=== PATIENT | male | born 1950 | race Caucasian/White ===

== ENCOUNTER 2017-05-16 13:14 | Emergency (ER) | payer OTHER ==
[2017-05-16] MEDS ORDERED: LET GEL TOPICAL 1 EA SYR TP ONE ×2 (13:29→13:30)
--- NOTE | 2017-05-16 13:34 | EDPHY ---
H & P Time Seen by Provider: 05/16/17 13:27 HPI/ROS: Chief Complaint: Skin tear left arm HPI: 66-year-old male sustained a contusion to his left for was struck by a door 3 days ago. Following day he was playing with his dog when he gets crashed over the contusion resulting in a skin tear. He is presenting today for evaluation. Denies any redness. No fevers or chills. No discharge. He is not on any immune suppressive medications other than some prednisone at this point. No prior injuries ROS: 10 point Review of Systems is negative except as noted in the HPI. Social History: [No] smoking, [no] alcohol, [ no recreational drug use] Family History: [non-contributory] Physical Exam: General: Awake, alert, no acute distress Left arm. He has a 3 cm contusion on his left forearm with an overlying skin tear. There is some dried epidermis along 1 edge. There is no erythema and there is no discharge. It is minimally tender to the touch. He is neurologically intact distally. Normal capillary refill. Skin: No rash - Personal History Tetanus Vaccine Date: 2009 - Medical/Surgical History Hx Asthma: No Hx Chronic Respiratory Disease: Yes Hx Diabetes: No Hx Cardiac Disease: No Hx Renal Disease: No Hx Cirrhosis: No Hx Alcoholism: No Hx HIV/AIDS: No Hx Splenectomy or Spleen Trauma: No Other PMH: HTN, HL, Meniere's Dse, emphysema, glaucoma, diverticulitis, anxiety , reflux, kidney stone - Social History Smoking Status: Former smoker Constitutional: Initial Vital Signs Heart Rate 90 05/16/17 13:20 Respiratory Rate 16 05/16/17 13:20 Blood Pressure 132/71 H 05/16/17 13:20 O2 Sat (%) 93 05/16/17 13:20 O2 Delivery Mode Room Air Allergies/Adverse Reactions: No Known Allergies Allergy (Verified 05/16/17 13:33) Home Medications: Medication Instructions Recorded Atorvastatin Calcium [Lipitor 20 20 mg PO HS 09/27/15 mg (*)] Bisoprolol Fumarate [Zebeta (*)] 2.5 mg PO DAILY 09/27/15 Montelukast Sodium [Singulair 10 10 mg PO DAILY 09/27/15 mg (*)] Omeprazole [Prilosec 20 mg] 20 mg PO BID 09/27/15 Spironolactone [Aldactone 25 MG 25 mg PO DAILY 09/27/15 (*)] Timolol [Betimol] 2 drops EACHEYE DAILY 09/27/15 Eye Drops Glaucoma 05/16/17 Medical Decision Making - Data Points Medications Given: Discontinued Medications Tetracaine/Epinephrine/Lidocaine (Let Gel Topical) 1 ea TP EDNOW ONE Stop: 05/16/17 13:31 Last Admin: 05/16/17 13:59 Dose: 1 ea Departure - Departure Disposition: Home, Routine, Self-Care Clinical Impression: Skin tear Condition: Good Instructions: Skin Tear (ED) Additional Instructions: Return to the emergency depart for increasing redness, increasing pain, fevers, chills, discharge from the wound, or any other concerns. Referrals: Lei Albert MD [Primary Care Provider] - As per Instructions
[2017-05-16 13:39] VITALS: BP 132/71; PULSE 90; RESP 16; O2SAT 93
[2017-05-16 14:11] VITALS: TEMP 98.2
== END 2017-05-16 14:00 | disposition home or self-care (01) ==
LOC: CED 13:14
DX: S51.812A Laceration without foreign body of left forearm, initial encounter (principal); I10 Essential (primary) hypertension; Z87.891 Personal history of nicotine dependence; W22.8XXA Striking against or struck by other objects, initial encounter

== ENCOUNTER → 2017-05-16 | Outpatient (CLI) | payer OTHER | LOC: CIMAGING 13:11 | PROVIDERS: ATTEND Internal Medicine Critical Care Medicine | DX: J44.9 Chronic obstructive pulmonary disease, unspecified (principal) | CPT/HCPCS: 71020-PO ==

== ENCOUNTER → 2017-06-01 | Outpatient (CLI) | payer OTHER | LOC: CIMAGING 11:31 | PROVIDERS: ATTEND Internal Medicine | DX: J44.9 Chronic obstructive pulmonary disease, unspecified (principal); J18.9 Pneumonia, unspecified organism; I10 Essential (primary) hypertension | CPT/HCPCS: 71020-PO ==

== ENCOUNTER → 2017-06-20 | Outpatient (CLI) | payer OTHER | LOC: CIMAGING 10:47 | PROVIDERS: ATTEND Internal Medicine | DX: J44.9 Chronic obstructive pulmonary disease, unspecified (principal) | CPT/HCPCS: 71020-PO ==

== ENCOUNTER → 2017-07-04 | Outpatient (CLI) | payer OTHER ==
[~2017-07-04] MED LIST: IOPAMIDOL (ISOVUE-300) 100 ML BTL ONE
== END ==
LOC: CIMAGING 13:16
PROVIDERS: ATTEND Internal Medicine
DX: J84.9 Interstitial pulmonary disease, unspecified (principal); K76.89 Other specified diseases of liver
CPT/HCPCS: 71260; Q9967

== ENCOUNTER → 2017-08-15 | Outpatient (CLI) | payer OTHER | LOC: CIMAGING 10:05 | PROVIDERS: ATTEND Internal Medicine Critical Care Medicine | DX: J18.9 Pneumonia, unspecified organism (principal) | CPT/HCPCS: 71020-PO ==

== ENCOUNTER 2017-10-30 01:07 | Emergency (ER) | payer OTHER ==
[2017-10-30 01:17] VITALS: TEMP 97.9
[2017-10-30] MEDS ORDERED: HYDROmorphONE/DILAUDID 1 MG/ML INJ ONE (01:25)
[2017-10-30] MEDS ORDERED: HYDROmorphONE/DILAUDID 1 MG/ML INJ IVP ONE (01:29)
[2017-10-30] MEDS ORDERED: NS 1,000 ML IV ONE ×2 (01:33)
[2017-10-30] MEDS ORDERED: KETOROLAC 30 MG/1 ML SDV IVP ONE (01:33)
[2017-10-30 01:42] LABS: PLATELET COUNT 297 10^3/uL (150-400)
[2017-10-30] MEDS ORDERED: NS IV ONE (02:00)
[2017-10-30] MEDS ORDERED: LIDOCAINE IV ONE (02:00)
--- NOTE | 2017-10-30 02:03 | EDPHY ---
H & P Stated Complaint: rt sided pain x 1.5 hrs, feels like prior kidney stones Time Seen by Provider: 10/30/17 01:52 HPI/ROS: HPI The patient presents with right-sided flank and lower abdominal pain which awoke him from sleep at about midnight tonight. The pain started suddenly, is described as a dull ache and is severe. It feels like his prior kidney stone which she had about 2 years ago which required admission to the hospital, which he has passed spontaneously. He has been able to urinate, denies any hematuria. Denies any nausea or vomiting.. REVIEW OF SYSTEMS Constitutional: No fever, no chills. Eyes: No discharge. ENT: No sore throat. Cardiovascular: No chest pain, no palpitations. Respiratory: No cough, no shortness of breath. Gastrointestinal: No abdominal pain, no vomiting. Genitourinary: No hematuria. Musculoskeletal: No back pain. Skin: No rashes. Neurological: No headache. PMHx: Prior history of kidney stone, interstitial lung disease, hypertension Soc Hx: Housed with PHYSICAL General Appearance: Alert, no distress Eyes: Pupils equal and round no pallor or injection ENT, Mouth: Mucous membranes moist Respiratory: There are no retractions, lungs are clear to auscultation Cardiovascular: Regular rate and rhythm Back: No flank tenderness Gastrointestinal: Abdomen is soft with mild tenderness in the right lower quadrant, no masses, bowel sounds normal Neurological: A&O, moves all extremities Skin: Warm and dry, no rashes Musculoskeletal: Neck is supple non tender Extremities: symmetrical, full range of motion Psychiatric: Patient is oriented X 3, there is no agitation Source: Patient Exam Limitations: No limitations - Personal History Current Tetanus/Diphtheria Vaccine: Yes Current Tetanus Diphtheria and Acellular Pertussis (TDAP): Yes Tetanus Vaccine Date: 2009 - Medical/Surgical History Hx Asthma: No Hx Chronic Respiratory Disease: Yes Hx Diabetes: No Hx Cardiac Disease: No Hx Renal Disease: No Hx Cirrhosis: No Hx Alcoholism: No Hx HIV/AIDS: No Hx Splenectomy or Spleen Trauma: No Other PMH: HTN, HL, Meniere's Dse, emphysema, glaucoma, diverticulitis, anxiety , reflux, kidney stone, interstitial lung disease - Social History Smoking Status: Former smoker Constitutional: Initial Vital Signs Temperature (C) 36.6 C 10/30/17 01:14 Heart Rate 100 10/30/17 01:14 Respiratory Rate 16 10/30/17 01:14 Blood Pressure 149/94 H 10/30/17 01:14 O2 Sat (%) 98 10/30/17 01:14 O2 Delivery Mode Room Air Allergies/Adverse Reactions: No Known Allergies Allergy (Verified 10/30/17 01:12) Home Medications: Medication Instructions Recorded Atorvastatin Calcium [Lipitor 20 20 mg PO HS 09/27/15 mg (*)] Bisoprolol Fumarate [Zebeta (*)] 2.5 mg PO DAILY 09/27/15 Montelukast Sodium [Singulair 10 10 mg PO DAILY 09/27/15 mg (*)] Omeprazole [Prilosec 20 mg] 20 mg PO BID 09/27/15 Spironolactone [Aldactone 25 MG 25 mg PO DAILY 09/27/15 (*)] Timolol [Betimol] 2 drops EACHEYE DAILY 09/27/15 Eye Drops Glaucoma 05/16/17 Ondansetron Odt [Zofran Odt 4 mg 4 mg PO Q4 PRN #10 tab 10/30/17 (*)] Tamsulosin HCl [Flomax 0.4 MG (*)] 0.4 mg PO DAILY #10 cap 10/30/17 morphINE IR [morphINE IR 15 mg (*)] 15 mg PO Q4H PRN #10 tab 10/30/17 Medical Decision Making Procedures: Bedside renal Ultrasound- performed and interpreted by me. Indication: Flank pain and hematuria Findings: Mild right-sided hydronephrosis, no left-sided hydronephrosis, no fluid in Morison's pouch Impression: Mild right-sided hydronephrosis Differential Diagnosis: 67-year-old male with history of nephrolithiasis, calcium stone by his report, requiring admission about 2 years ago, presents with acute onset right-sided flank and right lower quadrant abdominal pain which feels similar to his prior episode of renal colic. Differential diagnosis includes renal colic, pyelonephritis, less likely appendicitis. In the emergency department, patient received IV fluids, pain medications. He felt much better with these treatments. He improved after receiving a lidocaine drip. Ultrasound was performed at the bedside and he does have mild right-sided hydronephrosis. Labs demonstrated hematuria. Given his history of kidney stones, I feel with the above findings his presentation is most consistent with renal colic and I have discussed this with him. He feels well enough to go home. I will discharge him with medications and follow up with his urologist. He is in agreement with this plan. - Data Points Laboratory Results: Laboratory Results 10/30/17 01:24 10/30/17 01:24 Medications Given: Discontinued Medications Hydromorphone HCl (Dilaudid) 1 mg IVP EDNOW ONE Stop: 10/30/17 01:30 Last Admin: 10/30/17 01:31 Dose: 1 mg Sodium Chloride (Ns) 1,000 mls @ 0 mls/hr IV ONCE ONE; Wide Open PRN Reason: Protocol Stop: 10/30/17 01:34 Last Admin: 10/30/17 01:47 Dose: 1,000 mls Sodium Chloride (Ns) 1,000 mls @ 0 mls/hr IV ONCE ONE; Wide Open PRN Reason: Protocol Stop: 10/30/17 01:34 Last Admin: 10/30/17 01:46 Dose: 1,000 mls Lidocaine HCl 130 mg/ Sodium (Chloride) 113 mls @ 600 mls/hr IV EDNOW ONE Stop: 10/30/17 02:11 Last Admin: 10/30/17 02:42 Dose: 113 mls Ketorolac Tromethamine (Toradol) 30 mg IVP EDNOW ONE Stop: 10/30/17 01:34 Last Admin: 10/30/17 01:45 Dose: 30 mg Ondansetron HCl (Zofran) 4 mg IVP EDNOW ONE Stop: 10/30/17 02:53 Last Admin: 10/30/17 02:55 Dose: 4 mg Tamsulosin HCl (Flomax) 0.4 mg PO EDNOW ONE Stop: 10/30/17 02:23 Last Admin: 10/30/17 02:26 Dose: 0.4 mg Departure - Departure Disposition: Home, Routine, Self-Care Clinical Impression: Kidney stone on right side Condition: Good Instructions: Kidney Stones (ED) Additional Instructions: 1. Take Ibuprofen 400 mg with acetaminophen 650 mg every 6 hr. 2. Morphine as needed for severe pain 3. Flomax as directed 4. Zofran as needed for nausea 5. Strain urine as directed 6. Return to the Emergency Department for intractable pain, fever or vomiting. 7. Followup with the urologist you have been referred to for unimproved symptoms. Referrals: Ramone Campos MD [Primary Care Provider] - As per Instructions Franklin Kenney MD [Medical Doctor] - As per Instructions Prescriptions: morphINE IR [morphINE IR 15 mg (*)] 15 mg PO Q4H PRN #10 tab PRN Reason: Pain, Breakthrough Ondansetron Odt [Zofran Odt 4 mg (*)] 4 mg PO Q4 PRN #10 tab PRN Reason: Nausea/Vomiting, Can'T Take Po Tamsulosin HCl [Flomax 0.4 MG (*)] 0.4 mg PO DAILY #10 cap
[2017-10-30] MEDS ORDERED: TAMSULOSIN HCL 0.4 MG CAP PO ONE (02:22)
[2017-10-30 02:45] VITALS: RESP 14
[2017-10-30] MEDS ORDERED: ONDANSETRON 4 MG/2 ML VIAL ONE (02:51)
[2017-10-30] MEDS ORDERED: ONDANSETRON 4 MG/2 ML VIAL IVP ONE (02:52)
[2017-10-30 03:45] VITALS: BP 144/81; PULSE 80; O2SAT 94
== END 2017-10-30 03:45 | disposition home or self-care (01) ==
DX: N20.0 Calculus of kidney (principal); I10 Essential (primary) hypertension; E86.9 Volume depletion, unspecified; Z87.891 Personal history of nicotine dependence
CPT/HCPCS: 96361; 96374; 96375; 99284; J1170; J1885; J2405

== ENCOUNTER 2017-11-02 16:49 | Emergency (ER) | payer OTHER ==
[2017-11-02 16:58] VITALS: RESP 18; TEMP 97.7
[2017-11-02 18:11] LABS: PLATELET COUNT 229 10^3/uL (150-400)
--- NOTE | 2017-11-02 18:18 | EDPHY ---
H & P Time Seen by Provider: 11/02/17 17:32 HPI/ROS: CHIEF COMPLAINT: fever HISTORY OF PRESENT ILLNESS: This patient is a 67 y/o male with interstitial lung disease arriving at the request of his urologist for evaluation of fever and hypoxia. He was evaluated in this emergency department Sunday night for flank pain and had an ultrasound which revealed right hydronephrosis. He was diagnosed with a presumptive kidney stone. He has had intermittent right abdominal and flank pain since Sunday. Symptoms feel the same as prior kidney stone two years ago. His pain has been less manageable over the last two days, and he has increased his dosage of pain medication. On Sunday, he became febrile with a measured fever of 99-101. The patient has history of interstitial lung disease and noted his oxygen levels drop this week as well: on Sunday he noticed it was in the low to mid 80s rather than his usual 90-94. He has felt mildly short of breath. No new cough, congestion or sore throat. He followed up with Dr. Kenney, urologist , today who recommended he present for evaluation of his fever and hypoxia. He denies chest pain, headache, weakness, dizziness, vomiting, diarrhea, or other associated symptoms. REVIEW OF SYSTEMS: A 10 point review of systems was performed and is negative with the exception of the elements mentioned in the history of present illness. Past Medical/Surgical History: Hypertension Mnire's Disease Emphysema Glaucoma Diverticulitis GERD Kidney stones Interstitial lung disease Social History: Lives in [place]. Retired. . Former smoker. Smoking Status: Former smoker Physical Exam: General Appearance: Alert, pleasant, non-toxic appearing Eyes: Pupils equal and round, no conjunctival pallor or injection ENT, Mouth: Mucous membranes moist Neck: Normal inspection Respiratory: Normal respiratory rate, Scattered bilateral rales Cardiovascular: Regular rate and rhythm Gastrointestinal: Abdomen is soft and non-tender Back: No CVA tenderness Neurological: A&O, nonfocal exam Skin: Warm and dry, no rash Extremities: Nontender, no pedal edema Psychiatric: Mood and affect normal Constitutional: Initial Vital Signs Temperature (C) 36.5 C 11/02/17 16:55 Heart Rate 118 H 11/02/17 16:55 Respiratory Rate 18 11/02/17 16:55 Blood Pressure 133/80 H 11/02/17 16:55 O2 Sat (%) 89 L 11/02/17 16:55 O2 Delivery Mode Room Air O2 (L/minute) 2 Allergies/Adverse Reactions: No Known Allergies Allergy (Verified 10/30/17 01:12) Home Medications: Medication Instructions Recorded Atorvastatin Calcium 11/02/17 Flomax 11/02/17 Montelukast Sodium 11/02/17 levOFLOXACIN [levAQUIN (*)] 750 mg PO DAILY #7 tab 11/02/17 Medical Decision Making - Diagnostics Imaging Results: CT scan of the abdomen pelvis read by the radiologist reveals a 4 mm right UVJ stone with mild hydronephrosis CT scan of the chest read by the radiologist reveals a right upper lobe and left lower lobe infiltrate, consistent with multifocal pneumonia Imaging: Discussed imaging studies w/ call center specialist Radiologist ED Course/Re-evaluation: 67 y/o male with right flank pain, hypoxia and fever onset four days ago. Plan for CT chest as requested by Dr. Kenney. Plan for labs including flu swab, lactic acid, UA, CBC, chemistries. His flank pain is well controlled with 6mg IV morphine. Administered 4mg IV Zofran, 1L IV NS. Spoke with Dr. moseley prior to this patient's arrival and the plan is for him to have a CT scan his chest, abdomen and pelvis to rule out pneumonia as well as a kidney stone. 18:[address] Cason, radiologist. CT abdomen/pelvis shows obstructive uropathy secondary to 4 mm stone at the right UVJ. Discussed with patient, he is currently pain free. 18:[address] Kenney. 19:[address] Cason, radiologist. CT chest shows evidence of pneumonia. 19:50 Reassessed patient. I advised admission, but he declines. He has oxygen at home and is comfortable using his home oxygen around the clock. He is nontoxic-appearing and vital signs are normal, except for hypoxia. Plan to d/c home with his . I will place him on Levaquin. Levaquin 750 mg orally given prior to discharge. He will follow up with pulmonology and urology on Sunday for continued evaluation. Strict return precautions discussed. He is comfortable with this plan. Differential Diagnosis: Differential diagnosis includes pyelonephritis, cholecystitis, influenza, cellulitis, pneumonia, abscess, meningitis. - Data Points Laboratory Results: Laboratory Results 11/02/17 18:00 11/02/17 18:00 Microbiology Results: MICROBIOLOGY 11/02/17 18:00 Blood Blood Culture - Preliminary Gram Positive Cocci Clusters 11/02/17 18:00 Blood Blood Culture - Preliminary Gram Positive Cocci Clusters 11/02/17 17:50 Nasal, Sinus - Swab Respiratory Panel (PCR) - Final No Organism Detected Medications Given: Discontinued Medications Levofloxacin (Levaquin) 750 mg PO EDNOW ONE PRN Reason: Protocol Stop: 11/02/17 19:57 Last Admin: 11/02/17 20:08 Dose: 750 mg Morphine Sulfate (Morphine) 6 mg IVP EDNOW ONE Stop: 11/02/17 18:25 Last Admin: 11/02/17 18:33 Dose: 6 mg Ondansetron HCl (Zofran) 4 mg IVP EDNOW ONE Stop: 11/02/17 18:25 Last Admin: 11/02/17 18:32 Dose: 4 mg Departure - Departure Disposition: Home, Routine, Self-Care Clinical Impression: Ureterolithiasis Pneumonia Qualifiers: Pneumonia type: due to unspecified organism Laterality: bilateral Lung location : unspecified part of lung Qualified Code(s): J18.9 - Pneumonia, unspecified organism Condition: Good Instructions: Kidney Stones (ED), Pneumonia (ED) Additional Instructions: 1. Take Levaquin as prescribed. Follow up with Dr. Campos, coal wheeler, on Sunday. 2. Follow up with Dr. Kenney on Sunday. You may strain your urine to try and catch the kidney stone and bring this to the urology appointment. 3. Return to the emergency department for fever, severe pain, inability to urinate or other concerns. Return to the emergency department for worsening oxygen saturation, chest pain, shortness of breath, or other worsening of condition. Referrals: Ramone Campos MD [Primary Care Provider] - As per Instructions Franklin Kenney MD [Medical Doctor] - As per Instructions Prescriptions: levOFLOXACIN [levAQUIN (*)] 750 mg PO DAILY #7 tab Report Scribed for: Sabrina Thomas Report Scribed by: Jolie Henderson Date of Report: 11/02/17 Time of Report: 18:40 Physician Review and Approval Statement: 11/02/17 18:40 Portions of this note were transcribed by a director of graduate medical education. I personally performed a history, physical exam, medical decision making, and confirmed accuracy of information the transcribed note.
[2017-11-02] MEDS ORDERED: ONDANSETRON 4 MG/2 ML VIAL IVP ONE (18:24)
[2017-11-02 19:05] VITALS: BP 128/78
[2017-11-02 20:09] VITALS: PULSE 108; O2SAT 96
== END 2017-11-02 20:09 | disposition home or self-care (01) ==
DX: N20.1 Calculus of ureter (principal); J18.9 Pneumonia, unspecified organism; I10 Essential (primary) hypertension; Z87.891 Personal history of nicotine dependence
CPT/HCPCS: 71250; 74176; 96374; 96375; 99285; J2270

== ENCOUNTER → 2017-11-02 | Outpatient (CLI) | payer OTHER | LOC: FIMAGING 14:41 | PROVIDERS: ATTEND Specialist | DX: N20.0 Calculus of kidney (principal) ==

== ENCOUNTER 2017-11-03 17:07 | Inpatient (IN) | payer OTHER ==
--- NOTE | 2017-11-03 17:54 | EDPHY ---
H & P Time Seen by Provider: 11/03/17 17:11 HPI/ROS: CHIEF COMPLAINT: Positive blood cultures HISTORY OF PRESENT ILLNESS: The patient is a 67 y/o male with a history of interstitial lung disease and hypertension presenting to the ED after his blood cultures from yesterday resulted positive. He was sent to the ED yesterday after his urologist noticed that the patient was hypoxic and had a fever. During the ED visit they preformed labs and an abdominal and chest CT. He was diagnosed with a right ureteral calculus and bilateral pneumonia. He declined admission and was prescribed Levaquin. After returning home last night he had several episodes of severe right abdomen/flank pain; however it was alleviated with pain medication. Today he was using supplemental O2 at home and his O2sats were around 94%. He has had lack of appetite, mild nausea, and heart burn today. He also has not had a bowel movement for several days. Today blood cultures were positive and he was called by the ED to return to the hospital. He is currently having mild discomfort and an infrequent cough. No chest pain, headache, sore throat, numbness, paresthesias. REVIEW OF SYSTEMS: Aside from elements discussed in the HPI, a comprehensive 10-point review of systems was reviewed and is negative. Past Medical/Surgical History: Hypertension, hyperlipidemia, Mnire's Disease, emphysema, glaucoma, diverticulitis, GERD, kidney stones, interstitial lung disease, pneumonia Social History: at bedside, lives in [place], retired Smoking Status: Former smoker Physical Exam: General Appearance: Alert, pleasant, nontoxic Eyes: Pupils equal and round, no conjunctival pallor or injection ENT, Mouth: Mucous membranes moist Neck: Normal inspection Respiratory: Normal respiratory rate, rales at the left base Cardiovascular: Regular tachycardia Gastrointestinal: Abdomen is soft and non-tender Neurological: A&O, nonfocal Skin: Warm and dry, no rash Extremities: Nontender, no pedal edema Psychiatric: Mood and affect normal Constitutional: Initial Vital Signs Temperature (C) 37.3 C 11/03/17 17:10 Heart Rate 115 H 11/03/17 17:10 Respiratory Rate 20 11/03/17 17:10 Blood Pressure 128/76 H 11/03/17 17:10 O2 Sat (%) 89 L 11/03/17 17:10 O2 Delivery Mode Room Air Allergies/Adverse Reactions: No Known Allergies Allergy (Verified 11/03/17 17:09) Home Medications: Medication Instructions Recorded Atorvastatin Calcium [Lipitor 20 20 mg PO DAILY 11/02/17 mg (*)] Montelukast Sodium [Singulair 10 10 mg PO DAILY@1800 11/02/17 mg (*)] Tamsulosin HCl [Flomax 0.4 MG (*)] 0.4 mg PO DAILY 11/02/17 levOFLOXACIN [levAQUIN (*)] 750 mg PO DAILY #7 tab 11/02/17 Bisoprolol Fumarate [Zebeta (*)] 2.5 mg PO DAILY 11/03/17 Budesonide/Formoterol 160/4.5 2 puffs IH BID 11/03/17 [Symbicort 160-4.5 Mcg Inh (*)] Fluticasone Nasal [Flonase Nasal 2 sprays NASAL DAILY 11/03/17 [place] (RX)] Omeprazole [Prilosec 20 mg] 20 mg PO DAILY@18 11/03/17 Sodium Cl Nasal [Mcpherson [place] (*)] 1 spray NS DAILY 11/03/17 Spironolactone [Aldactone 25 MG 25 mg PO DAILY 11/03/17 (*)] Timolol Maleate 1 drop EACHEYE DAILY 11/03/17 Medical Decision Making ED Course/Re-evaluation: The patient is a 67 y/o male with a history of interstitial lung disease presenting to the ED after his blood cultures from yesterday came back positive for gram positive cocci in clusters. He was diagnosed with a right kidney stone in the renal calculus and a bilateral pneumonia, but declined admission. On exam today, he has a few rales in the left base and is mildly tachycardic. He is comfortable with plan for admission today. Labs ordered. 1802: Consulted with Dr. Ruiz, infectious disease, regarding this patient. Query infection versus contamination. Suggests that positive blood cultures be treated as bacteremia; 1gm IV Vancomycin administered. Pt does not meet SIRS criteria. Dr. Ruiz will see this patient tomorrow. 1806: Consulted with hospitalist service, Dr. Allen accepts admission of this patient to med/surg. 1811: Reassessed patient and discussed plan with pt for hospitalization, IV abx and for ID consultation. Differential Diagnosis: Differential diagnosis includes pyelonephritis, cholecystitis, influenza, cellulitis, pneumonia, abscess, meningitis. - Data Points Laboratory Results: Laboratory Results 11/03/17 17:45 11/03/17 17:45 Microbiology Results: MICROBIOLOGY 11/03/17 18:00 Blood Blood Culture - Preliminary 11/03/17 17:45 Blood Blood Culture - Preliminary Medications Given: Albuterol/Ipratropium (Duoneb) 3 ml IH TID [facility] Stop: 05/03/18 21:59 Last Admin: 11/05/17 08:32 Dose: 3 ml Atorvastatin Calcium (Lipitor) 20 mg PO DAILY RAMSES Stop: 05/03/18 08:59 Last Admin: 11/05/17 09:14 Dose: 20 mg Bisoprolol Fumarate (Zebeta) 2.5 mg PO DAILY [facility] Stop: 05/03/18 08:59 Last Admin: 11/05/17 09:15 Dose: 2.5 mg Budesonide/Formoterol Fumarate (Symbicort 160-4.5 Mcg Inhaler) 2 puffs IH BID [facility] Stop: 05/02/18 20:59 Last Admin: 11/05/17 08:32 Dose: 2 puffs Fluticasone Propionate (Flonase Nasal [place]) 2 sprays EACHNARE DAILY [facility] Stop: 05/03/18 08:59 Last Admin: 11/05/17 09:21 Dose: 2 sprays Vancomycin/Sodium Chloride (Vancomycin 1 Gm (Premix)) 250 mls @ 250 mls/hr IV Q12H [facility] PRN Reason: Protocol Stop: 12/04/17 05:59 Last Admin: 11/05/17 06:01 Dose: 250 mls Lactated Ringer's (Lr) 1,000 mls @ 200 mls/hr IV CONT [facility] Stop: 05/02/18 18:59 Last Admin: 11/05/17 06:01 Dose: 1,000 mls Levofloxacin (Levaquin) 750 mg PO DAILY AT 10AM [facility] PRN Reason: Protocol Stop: 12/04/17 18:29 Last Admin: 11/05/17 09:14 Dose: 750 mg Montelukast Sodium (Singulair) 10 mg PO DAILY@1800 [facility] Stop: 05/03/18 17:59 Last Admin: 11/04/17 18:00 Dose: 10 mg Morphine Sulfate (Morphine) 0.5 - 4 mg IVP Q2 PRN PRN Reason: Pain, Severe Unable to Take PO Stop: 11/13/17 18:19 Last Admin: 11/04/17 17:08 Dose: 2 mg Ondansetron HCl (Zofran) 4 mg IVP Q4HRS PRN PRN Reason: Nausea/Vomiting, Can't Take PO Stop: 05/02/18 18:19 Last Admin: 11/04/17 14:19 Dose: 4 mg Oxycodone HCl (Oxycodone Ir) 5 - 15 mg PO Q3HRS PRN PRN Reason: Pain, Severe Able to Take PO Stop: 11/13/17 18:19 Last Admin: 11/05/17 09:33 Dose: 10 mg Pantoprazole Sodium (Protonix) 40 mg PO DAILY@1800 [facility] Stop: 05/03/18 17:59 Last Admin: 11/04/17 17:59 Dose: 40 mg Senna/Docusate Sodium (Senokot-S) 1 - 2 tab PO BID RAMSES PRN Reason: Protocol Stop: 05/02/18 20:59 Last Admin: 11/05/17 09:19 Dose: 2 tab Sodium Chloride (Mcpherson) 1 spray NS DAILY RAMSES Stop: 05/03/18 08:59 Last Admin: 11/05/17 09:18 Dose: 1 spray Tamsulosin HCl (Flomax) 0.4 mg PO DAILY RAMSES Stop: 05/03/18 08:59 Last Admin: 11/05/17 09:18 Dose: 0.4 mg Timolol Maleate (Timoptic 0.25%) 1 drops EACHEYE DAILY RAMSES Stop: 05/03/18 08:59 Last Admin: 11/05/17 09:22 Dose: 1 drop Discontinued Medications Fentanyl (Sublimaze) 25 - 100 mcg IVP Q5M PRN PRN Reason: PACU, IMMEDIATE Pain control Stop: 11/04/17 14:17 Last Admin: 11/04/17 13:31 Dose: 50 mcg Vancomycin/Sodium Chloride (Vancomycin 1 Gm (Premix)) 250 mls @ 250 mls/hr IV EDNOW ONE PRN Reason: Protocol Stop: 11/03/17 19:09 Last Admin: 11/03/17 18:30 Dose: 250 mls Sodium Chloride (Ns) 1,000 mls @ 0 mls/hr IV ONCE ONE; Wide Open PRN Reason: Protocol Stop: 11/03/17 18:22 Last Admin: 02/10/18 18:22 Dose: 1,000 mls Iopamidol (Isovue-300) Confirm Administered Dose 150 ml .ROUTE .STK-MED ONE Stop: 11/04/17 10:25 Last Admin: 11/04/17 12:55 Dose: 150 ml Lidocaine (Uroject Lidocaine 2% Jelly) Confirm Administered Dose 20 ml .ROUTE .STK-MED ONE Stop: 11/04/17 10:25 Last Admin: 11/04/17 12:56 Dose: 20 ml Midazolam HCl (Versed) 2 mg IVP ONCALL ONE Stop: 11/04/17 12:06 Last Admin: 11/04/17 12:27 Dose: 2 mg Departure - Departure Disposition: [facility] Inpatient Acute Clinical Impression: Kidney stone on right side, Bacteremia Pneumonia Qualifiers: Pneumonia type: due to unspecified organism Laterality: bilateral Lung location : unspecified part of lung Qualified Code(s): J18.9 - Pneumonia, unspecified organism Condition: Fair Report Scribed for: Sabrina Thomas Report Scribed by: Iona Key Date of Report: 11/03/17 Time of Report: 17:54 Physician Review and Approval Statement: 11/03/17 17:54 Portions of this note were transcribed by a director of medical staff services. I personally performed a history, physical exam, medical decision making, and confirmed accuracy of information the transcribed note.
[2017-11-03 18:00] LABS: PLATELET COUNT 214 10^3/uL (150-400)
[2017-11-03] MEDS ORDERED: VANCOMYCIN HCL/NORMAL SALINE 250 ML IV ONE (18:10)
[2017-11-03] MEDS ORDERED: ACETAMINOPHEN 325 MG TAB PO PRN (18:20)
[2017-11-03] MEDS ORDERED: ONDANSETRON DISINTEGRATING 4 MG TAB PO PRN (18:20)
[2017-11-03] MEDS ORDERED: oxyCODONE IR 5 MG TAB PO PRN (18:20)
[2017-11-03] MEDS ORDERED: ONDANSETRON 4 MG/2 ML VIAL IVP PRN (18:20)
[2017-11-03] MEDS ORDERED: NS 1,000 ML IV ONE (18:21)
[2017-11-03] MEDS ORDERED: POLYETHYLENE GLYCOL 3350 17 GM PKT PO PRN (18:24)
[2017-11-03] MEDS ORDERED: LACTULOSE 20 GM/30 ML UDCUP PO PRN (18:24)
[2017-11-03] MEDS ORDERED: MAGNESIUM HYDROXIDE 30 ML UDCUP PO PRN (18:24)
[2017-11-03] MEDS ORDERED: BISACODYL 10 MG SUPP PR PRN (18:24)
--- NOTE | 2017-11-03 19:39 | PDGENHP ---
History and Physical - Chief Complaint Acute fever - History of Present Illness Primary care provider: Dr. Bethany Ho Primary life skills consultant: Dr. Ramone Campos, [facility] Primary urologist: Dr. Jermaine Kenney HPI: 67-year-old male presenting with acute fever characterized as a temperature of 101.3 degrees F, with associated pain located in the right flank , shortness of breath, constipation. The patient onset of symptoms regarding the right flank pain was approximately 1 week ago, the patient was referred to Dr. Kenney, he was seen in clinic on the day prior to this presentation, advised to increase his oral intake of water, utilize as [place] for pain control. The patient's pain has been somewhat alleviated by using the [place], but has resulted in constipation. Concomitantly, the patient has also noted some shortness of breath exacerbated by ambulation, and his SpO2 has been in the high 70 to low 80% range at home. The patient only utilizes oxygen nocturnally, but he has been using the oxygen continuously now and this has somewhat alleviated his shortness of breath. He otherwise reports chronic nonproductive cough, no recent weight loss, no vomiting or chest pain. Of note, the patient was seen in the emergency department on 11/02, abdominal CT demonstrated right-sided stone with hydronephrosis, some bilateral airspace disease, blood cultures were drawn, he was prescribed oral levofloxacin. On , 12/26 blood cultures were growing coag-negative staph. History Information - Allergies/Home Medication List Allergies/Adverse Reactions: No Known Allergies Allergy (Verified 11/03/17 17:09) Home Medications: Atorvastatin Calcium [Lipitor 20 mg (*)] 20 mg PO DAILY 11/02/17 [Last Taken 07/11] Montelukast Sodium [Singulair 10 mg (*)] 10 mg PO DAILY@1800 11/02/17 [Last Taken 11/03/17] Tamsulosin HCl [Flomax 0.4 MG (*)] 0.4 mg PO DAILY 11/02/17 [Last Taken 11/03/17 ] Bisoprolol Fumarate [Zebeta (*)] 2.5 mg PO DAILY 11/03/17 [Last Taken 11/03/17] Budesonide/Formoterol 160/4.5 [Symbicort 160-4.5 Mcg Inh (*)] 2 puffs IH BID 07/11 [Last Taken 11/02/17] Fluticasone Nasal [Flonase Nasal [place] (RX)] 2 sprays NASAL DAILY 11/03/17 [ Last Taken 11/03/17] Omeprazole [Prilosec 20 mg] 20 mg PO DAILY@18 11/03/17 [Last Taken 11/02/17] Sodium Cl Nasal [[place] (*)] 1 spray NS DAILY 11/03/17 [Last Taken 11/03/17 ] Spironolactone [Aldactone 25 MG (*)] 25 mg PO DAILY 11/03/17 [Last Taken ] Timolol Maleate 1 drop EACHEYE DAILY 11/03/17 [Last Taken 10/31/17] I have personally reviewed and updated: family history, medical history, social history, surgical history - Past Medical History Additional medical history: (NSIP) interstitial lung disease, previously taking prednisone, last taken August of 2017, primary life skills consultant at [facility] considering mycophenolate. Nocturnal hypoxia. Hypertension. Chronic nephrolithiasis. Meniere's disease. Gastroesophageal reflux disease. Glaucoma. Diverticulosis - Surgical History Reports: no pertinent surgical hx - Family History Additional family history: Mother with kidney stone, GERD - Social History Smoking Status: Former smoker Alcohol Use: None Drug Use: None Additional social history: Independent in ADLs Review of Systems Review of Systems: ROS: 10pt was reviewed & negative except for what was stated in HPI & below Constitutional: Reports: fever, malaise Respiratory: Reports: cough, shortness of breath Gastrointestinal: Reports: abdominal pain (Right flank) Physical Exam Physical Exam: Temp Pulse Resp BP Pulse Ox 36.9 C 96 16 118/76 97 11/03/17 19:07 11/03/17 19:07 11/03/17 19:07 11/03/17 19:07 11/03/17 19:07 O2 (L/minute) 2 Constitutional: no apparent distress, chronically ill appearing, uncomfortable, No not in pain (Mild right flank) Eyes: PERRL, anicteric sclera, EOMI Ears, Nose, Mouth, Throat: moist mucous membranes, hearing normal, ears appear normal, no oral mucosal ulcers Cardiovascular: regular rate and rhythym, no murmur, rub, or gallop, No edema Respiratory: reduced air movement (On inspiration, poor inspiratory air movement ), inspiratory crackles (Right mid posterior segment, left lower posterior segment), No expiratory wheeze, No bronchial breath sounds Gastrointestinal: tenderness (Right CVA), distension (Mild), No normoactive bowel sounds (Hypoactive), No guarding Genitourinary: no bladder fullness, no bladder tenderness Skin: warm, No rash Neurologic: AAOx3, sensation intact bilaterally, No weakness Psychiatric: interacting appropriately, not anxious, not encephalopathic, thought process linear Lab Data & Imaging Review 11/03/17 17:45 11/03/17 17:45 WBC 10.41 10^3/uL (3.80-9.50) H 11/03/17 17:45 RBC 4.79 10^6/uL (4.40-6.38) 11/03/17 17:45 Hgb 12.8 g/dL (13.7-17.5) L 11/03/17 17:45 Hct 39.3 % (40.0-51.0) L 11/03/17 17:45 MCV 82.0 fL (81.5-99.8) 11/03/17 17:45 MCH 26.7 pg (27.9-34.1) L 11/03/17 17:45 MCHC 32.6 g/dL (32.4-36.7) 11/03/17 17:45 RDW 14.5 % (11.5-15.2) 11/03/17 17:45 Plt Count 214 10^3/uL (150-400) 11/03/17 17:45 MPV 9.6 fL (8.7-11.7) 11/03/17 17:45 Neut % (Auto) 81.7 % (39.3-74.2) H 11/03/17 17:45 Lymph % (Auto) 8.1 % (15.0-45.0) L 11/03/17 17:45 [place] % (Auto) 8.6 % (4.5-13.0) 11/03/17 17:45 Eos % (Auto) 0.9 % (0.6-7.6) 11/03/17 17:45 Baso % (Auto) 0.2 % (0.3-1.7) L 11/03/17 17:45 Nucleat RBC Rel Count 0.0 % (0.0-0.2) 11/03/17 17:45 Absolute Neuts (auto) 8.51 10^3/uL (1.70-6.50) H 11/03/17 17:45 Absolute Lymphs (auto) 0.84 10^3/uL (1.00-3.00) L 11/03/17 17:45 Absolute Monos (auto) 0.90 10^3/uL (0.30-0.80) H 11/03/17 17:45 Absolute Eos (auto) 0.09 10^3/uL (0.03-0.40) 11/03/17 17:45 Absolute Basos (auto) 0.02 10^3/uL (0.02-0.10) 11/03/17 17:45 Absolute Nucleated RBC 0.00 10^3/uL (0-0.01) 11/03/17 17:45 Immature Gran % 0.5 % (0.0-1.1) 11/03/17 17:45 Immature Gran # 0.05 10^3/uL (0.00-0.10) 11/03/17 17:45 VBG Lactic Acid 1.3 mmol/L (0.7-2.1) D 11/03/17 17:45 Sodium 140 mEq/L (135-145) 11/03/17 17:45 Potassium 4.1 mEq/L (3.5-5.2) 11/03/17 17:45 Chloride 106 mEq/L (97-110) 11/03/17 17:45 Carbon Dioxide 20 mEq/l (22-31) L D 11/03/17 17:45 Anion Gap 14 mEq/L (8-16) 11/03/17 17:45 BUN 14 mg/dL (7-23) 11/03/17 17:45 Creatinine 1.4 mg/dL (0.7-1.3) H 11/03/17 17:45 Estimated GFR 50 11/03/17 17:45 Glucose 104 mg/dL (70-100) H 11/03/17 17:45 Calcium 9.2 mg/dL (8.5-10.4) 11/03/17 17:45 Visualized and Interpreted imaging results: Yes Interpretation: Chest CT demonstrating right upper lobe and left lower lobe airspace disease Assessment & Plan Assessment: 67-year-old male presents with acute coag-negative staph bacteremia in the setting of acute on chronic right-sided obstructive uropathy Plan: 1. Coag-negative staph bacteremia. 4/4 bottles, unclear whether these are secondary to urinary source versus pulmonary, discussed with Dr. Sabrina Thomas in the emergency department was discussed with Dr. Doni Ruiz from Infectious Disease, the recommendation is to treat with IV vancomycin, monitor speciation and sensitivity -repeat blood cultures have been drawn -patient will likely require 2 weeks of antibiotic therapy from negative culture date, sensitivities to be determined 2. Obstructive uropathy. Acute, evidenced by serum creatinine level of 1.4 in the setting of 4 mm stone at the right UVJ, resulting in hydronephrosis -reviewed outside records including 10/02/[address] Bertin Sinha, reporting the patient had a kidney stone with acute kidney injury at that time -patient saw Dr. Kenney on 11/02, was advised to increase oral hydration, strain urine, utilize pain control as needed -given that this may be possible source of infection, is also resulting in renal compromise, I would recommend cystoscopy if stone has not passed in a.m. -will make NPO after midnight, continue strain urine, continue IV fluids at 200 cc an hour -will consult with on-call Urology and notify them of this patient -continue monitor serum creatinine level, strict I&Os 3. Possible pneumonia with chronic interstitial lung disease. Present on admission, Chest CT demonstrating bilateral infiltrates, patient has known history of underlying interstitial lung disease and bronchiectasis, is predisposed to pulmonary infections -will continue on single agent vancomycin per the direction of Dr. Doni Ruiz -infectious Disease consultation appreciated -will discussed with pulmonary ultrasonic welding machine operator, request consultation to help determine whether the patient should receive steroids for this issue given possible interstitial lung disease flare -if productive sputum, send cultures, send urine strep, urine Legionella 5. Acute hypoxic respiratory failure. Evidenced by SpO2 in the upper 70s to 80s percent on room air prior to presentation, with symptomatic shortness of breath, I believe that SpO2 of 89% on room air on presentation was entered in air, and the patient was actually on 2 L nasal cannula at that time -get room air sat for confirmation -continue on supplemental oxygen, anticipate that he will require this continuously moving forward -unclear whether the precipitant is interstitial lung disease flare versus pneumonia, will get pulmonary consultation 6. Gastroesophageal reflux disease. Continue PPI, continue as needed antacid 7. Chronic hypertension. Continue home medication Diet. Regular, NPO after midnight Prophylaxis. High risk patient, SCDs will considering surgical intervention Code. Full per patient, is MD POA Disposition. Anticipated discharge uncertain this time, anticipated length stay is greater than 48 hr warranting inpatient admission status reasonable medical necessity including acute bacteremia with acute obstructive uropathy most likely requiring surgical intervention complicated by possible pneumonia, interstitial lung disease, respiratory failure.
--- NOTE | 2017-11-03 20:40 | PDMN ---
Medical Necessity Medical necessity: C/M review: Patient meets INPT criteria under [facility] M-320 Renal colic and kidney stones: Acute and persistent - coag-negative staph bacteremia (on 11/03/2017 4/4 bottles positive), obstructive uropathy (11/02/2017 CT showed right sided kidney stone with hydronephrosis, blood cx done, oral levofloxacin prescribed during ED visit), 11/02/2017 Cr 1.7, 11/03/2017 Cr 1.4, baseline Cr 1, possible pneumonia, acute hypoxic respiratory failure, upper 70' s to 80's % RA sat just prior to presentation, 89% 11/03/2017 17:10 PM RA sat in ED, WBC10.41, requiring planned Infectious disease consult, Urology consult, Pulmonary consult, possible 11/04/2017 surgical intervention if kidney stone not passed, ongoing IV Vancomycin Q 12 hrs., IV LR 200 ml/hr infusion, pulse oximetry, supplemental O2, chronic interstitial lung disease, GERD, chronic hypertension, history of chronic nephrolithiasis, Meniere's disease, glaucoma, diverticulosis. anticipates > 2 MN LOS for ongoing med nec for eval and TX of above. Patient is Medicare Advantage which follows guidelines CMS puts forth.
[2017-11-03] MEDS: BUDESONIDE/FORMOTEROL 160/4.5 60 PUFFS/MDI IH SCH (21:42)
[2017-11-03] MEDS: SENNOSIDES/DOCUSATE SODIUM TAB PO SCH (21:42)
[2017-11-04] MEDS: oxyCODONE IR 5 MG TAB PO PRN ×3 (01:10→21:32)
--- NOTE | 2017-11-04 03:45 | CPEKG ---
Heart Rate: 105 RR Interval: 571 P-R Interval: 132 QRSD Interval: 78 QT Interval: 328 QTC Interval: 434 P [place]: 49 QRS [place]: 63 T Wave [place]: 33 EKG Severity - OTHERWISE NORMAL ECG - EKG Impression: SINUS TACHYCARDIA Electronically Signed By: Josep Betts 04-Nov-2017 12:20:40
[2017-11-04 04:46] LABS: PLATELET COUNT 187 10^3/uL (150-400)
[2017-11-04] MEDS: VANCOMYCIN HCL/NORMAL SALINE 250 ML IV SCH ×2 (05:14→18:38)
[2017-11-04] MEDS: BISOPROLOL FUMARATE 5 MG TAB PO SCH (08:33)
[2017-11-04] MEDS: ATORVASTATIN CALCIUM 20 MG TAB PO SCH (08:34)
[2017-11-04] MEDS: SENNOSIDES/DOCUSATE SODIUM TAB PO SCH ×2 (08:34→21:32)
[2017-11-04] MEDS: TAMSULOSIN HCL 0.4 MG CAP PO SCH (08:35)
[2017-11-04] MEDS: SODIUM CL NASAL 45 ML BTL NS SCH (08:42)
[2017-11-04] MEDS ORDERED: ENOXAPARIN 40 MG/0.4 ML SYR SC SCH (09:00)
[2017-11-04] MEDS: BUDESONIDE/FORMOTEROL 160/4.5 60 PUFFS/MDI IH SCH ×2 (09:45→21:18)
[2017-11-04] MEDS ORDERED: IOPAMIDOL (ISOVUE-300) 150 ML BTL ONE (10:24)
[2017-11-04] MEDS ORDERED: LIDOCAINE 2% JELLY 20 ML (UROJECT) ONE (10:24)
[2017-11-04] MEDS: LR 1,000 ML IV SCH ×2 (10:34→17:10)
[2017-11-04] MEDS: TIMOLOL 0.25% 5 ML OPHT.BTL EACHEYE SCH (10:36)
[2017-11-04] MEDS: FLUTICASONE NASAL 120 SPRAYS/16 GM MDI EACHNARE SCH (10:38)
--- NOTE | 2017-11-04 11:31 | ASMTCASEMG ---
Living Arrangements What is your living Answers: With Spouse arrangement? Who do you live with? Type Of Residence What kind of residence do Answers: House you live in? Discharge Plan Comments Coordination Status Comments Notes: CM spoke w/ LAURA Chamorro regarding d/c POC. Pt is a 67 y/o man admitted for bacteremia and pneumonia. Pt is having surgery today. Pt is tested positive for blood cultures. ID is consulting. Therapies have been ordered. Needs are TBD at this time. CM to follow. Plan: TBD Date Signed: 11/04/2017 11:31 AM Electronically Signed By:ADRIANE Oconnor
--- NOTE | 2017-11-04 11:46 | PDANEPAE ---
ANE History of Present Illness ureteroscopy ANE Past Medical History - Cardiovascular History Hx Hypertension: Yes Hx Arrhythmias: No Hx Chest Pain: No Hx Coronary Artery / Peripheral Vascular Disease: No Hx CHF / Valvular Disease: No Hx Palpitations: No - Pulmonary History Hx COPD: No Hx Asthma/Reactive Airway Disease: No Hx Recent Upper Respiratory Infection: No Hx Oxygen in Use at Home: Yes O2 in Use at Home (L/minute): 2L Hx Sleep Apnea: Yes Sleep Apnea Screening Result - Last Documented: Positive Pulmonary History Comment: interstitial lung disease - Neurologic History Hx Cerebrovascular Accident: No Hx Seizures: No Hx Dementia: No - Endocrine History Hx Diabetes: No Hypothyroid: No Hyperthyroid: No - Renal History Hx Renal Disorders: Yes Renal History Comment: nephrolithiasis - Liver History Hx Hepatic Disorders: No - Neurological & Psychiatric Hx Hx Neurological and Psychiatric Disorders: No - GI History GERD: moderate - Chronic Pain History Chronic Pain: No ANE Review of Systems Review of Systems: - Exercise capacity Exercise capacity: >=4 METS ANE Patient History - Allergies Allergies/Adverse Reactions: No Known Allergies Allergy (Verified 11/03/17 17:09) - Home Medications Home Medications: Atorvastatin Calcium [Lipitor 20 mg (*)] 20 mg PO DAILY 11/02/17 [Last Taken 07/11] Montelukast Sodium [Singulair 10 mg (*)] 10 mg PO DAILY@1800 11/02/17 [Last Taken 11/03/17] Tamsulosin HCl [Flomax 0.4 MG (*)] 0.4 mg PO DAILY 11/02/17 [Last Taken 11/03/17 ] Bisoprolol Fumarate [Zebeta (*)] 2.5 mg PO DAILY 11/03/17 [Last Taken 11/03/17] Budesonide/Formoterol 160/4.5 [Symbicort 160-4.5 Mcg Inh (*)] 2 puffs IH BID 07/11 [Last Taken 11/02/17] Fluticasone Nasal [Flonase Nasal [place] (RX)] 2 sprays NASAL DAILY 11/03/17 [ Last Taken 11/03/17] Omeprazole [Prilosec 20 mg] 20 mg PO DAILY@18 11/03/17 [Last Taken 11/02/17] Sodium Cl Nasal [[place] (*)] 1 spray NS DAILY 11/03/17 [Last Taken 11/03/17 ] Spironolactone [Aldactone 25 MG (*)] 25 mg PO DAILY 11/03/17 [Last Taken ] Timolol Maleate 1 drop EACHEYE DAILY 11/03/17 [Last Taken 10/31/17] - NPO status NPO Status: no food or drink >8 hours NPO Since - Liquids (Date): 11/04/17 NPO Since - Liquids (Time): 00:00 NPO Since - Solids (Date): 11/04/17 NPO Since - Solids (Time): 00:00 - Anes Hx Anes Hx: no prior problems - Smoking Hx Smoking Status: Former smoker - Alcohol Use Alcohol Use: None ANE Labs/Vital Signs - Labs Result Diagrams: 11/04/17 04:36 11/04/17 04:36 - Vital Signs Blood Pressure: 142/78 Heart Rate: 107 Respiratory Rate: 20 O2 Sat (%): 93 Height: 175.26 cm Weight: 64.5 kg ANE Physical Exam - Airway Mallampati Score: Class 2 Mouth exam: normal dental/mouth exam, perdomo - Pulmonary Pulmonary: no respiratory distress - Cardiovascular Cardiovascular: regular rate and rhythym - ASA Status ASA Status: II ANE Anesthesia Plan Anesthesia Plan: GA w LMA
[2017-11-04] MEDS ORDERED: MIDAZOLAM 2 MG/2 ML VIAL IVP ONE (12:05)
[2017-11-04] MEDS ORDERED: LIDOCAINE 2% 5 ML SDV ONE (12:16)
[2017-11-04] MEDS ORDERED: DEXAMETHASONE 4 MG/ML VIAL ONE (12:16)
[2017-11-04] MEDS ORDERED: PROPOFOL 200 MG/20 ML VIAL ONE (12:16)
[2017-11-04] MEDS ORDERED: fentaNYL 100 MCG/2 ML INJ ONE ×2 (12:16→13:30)
[2017-11-04] MEDS ORDERED: MIDAZOLAM 2 MG/2 ML VIAL ONE (12:21)
--- NOTE | 2017-11-04 12:40 | HOSPPROG ---
Hospitalist Progress Note Assessment/Plan: 67-year-old man with a history of interstitial lung disease, hypertension and dyslipidemia is admitted with flank pain and known obstructing kidney stone # 4 mm stone distal right UVJ with hydronephrosis complicated by bacteremia. * Urology to proceed with surgery today * Continue IV Vanco for probable staph species * Patient discussed with ID * Pain well controlled # history of interstitial lung disease on long-term prednisone. Recently weaned off prednisone in August which may have made him more susceptible to infections. He has been followed at [facility] and over the last few weeks his cough has worsened and this admission presenting with acute on chronic respiratory failure * Continue oxygen as needed * Discuss with pulmonology in the Will consult regarding resuming prednisone. * Long-term plan was to transition to mycophenolate # hypertension, stable # dyslipidemia Subjective: Patient here with kidney stone and bacteremia. Patient new to [place] and chart reviewed Objective: Vital Signs Temp Pulse Resp BP Pulse Ox 37.1 C 107 H 20 142/78 H 93 11/04/17 11:54 11/04/17 12:05 11/04/17 12:05 11/04/17 12:05 11/04/17 12:05 Laboratory Results 11/04/17 04:36 11/04/17 04:36 11/03/17 11/04/17 11/05/17 05:59 05:59 05:59 Intake Total 1020 Output Total 200 180 Balance 820 -180 - Physical Exam Constitutional: no apparent distress Eyes: PERRL, EOMI Ears, Nose, Mouth, Throat: moist mucous membranes, hearing normal Cardiovascular: regular rate and rhythym Respiratory: no respiratory distress, inspiratory crackles Gastrointestinal: normoactive bowel sounds, tenderness Genitourinary: no bladder fullness Skin: warm, normal color Neurologic: AAOx3 Psychiatric: interacting appropriately, not anxious, not encephalopathic ICD10 Worksheet Patient Problems: Problems Problem Status Onset Kidney stone on right side Acute Hydronephrosis of right kidney Acute Pneumonia Acute Bacteremia Acute
[2017-11-04] MEDS ORDERED: ONDANSETRON 4 MG/2 ML VIAL ONE (12:50)
--- NOTE | 2017-11-04 13:12 | GCON ---
[f rep st] CONSULTATION DATE OF CONSULTATION: 11/04/2017 PREOPERATIVE DIAGNOSES: 1. Obstructing ureteral stone on the right. 2. Possible sepsis. 3. Possible infected stone. 4. Blood cultures growing out bacteria. ID consulted. HISTORY OF PRESENT ILLNESS: This is a very pleasant 67-year-old male with an obstructing stone, know n obstruction, mild hydronephrosis noted on prior imaging, flank pain noted. [facility] of 1.7 and potential signs of possible sepsis. He was admitted to the hospital for management of this due to the fevers and tachycardia. This has improved with antibiotic s, and ID has changed his antibiotics to vancomycin for coag-negative Staph on his blood cultures. Jamie krueger presents today for management of the stone. We will be either placing a stent or removing the ston e and placing a stent, depending on what we can accomplish given the possible infection. He will be brought to the operating room today for this. SOCIAL HISTORY: Smoking history: Former smoker. Drug use: None. REVIEW OF SYSTEMS: A 10-point review of systems is negative, except for this HPI. CONSTITUTIONAL: Fever and malaise. RESPIRATORY: Cough, short of breath. GI: Abdominal right flank pain. PHYSICAL EXAM: VITAL SIGNS: He is currently afebrile. Pulse 96, respiratory rate is 16, blood pres sures are 120s/70s, pulse ox 97%. CONSTITUTIONAL: Mild distress, chronically ill-appearing, uncomfortable. HEENT: Normocephalic, atraumatic. NECK: Supple. No lymphadenopathy. Trachea is midline. CHEST: No retractions. No pursed lip breathing. No cyanosis. GI: Right CVA tenderness. Mild distention. No guarding. GENITOURINARY: Normal exam. Phallus is normal. Scrotum is normal. SKIN: Warm. No rashes or lesions. NEUROLOGIC: Cranial nerves 2-12 grossly intact. Alert and oriented x3. PSYCHIATRIC: Normal mood and affect. Moderately anxious. LABS: His white blood cell count is 7 today, H and H are 11 and 35, platelets are 187. Microbiology shows coag-negative staph. IMAGING: Was reviewed by me and there is a 3-4 mm stone at the UVJ on the right with mild hydronephr osis, and a 4 mm stone on the left in the kidney, nonobstructing. ASSESSMENT AND PLAN: 1. N.p.o. 2. To operating room for management of right obstructing ureteral stone. 3. Stent will be placed. 4. He will likely stay overnight, given his potential sepsis. We will follow. /[id number]/MODL
[2017-11-04] MEDS ORDERED: fentaNYL 100 MCG/2 ML INJ IVP PRN (13:17)
[2017-11-04] MEDS ORDERED: NALOXONE HCL 0.4 MG/ML INJ IVP PRN (13:17)
[2017-11-04] MEDS ORDERED: ALBUTEROL 3 ML DEYVIAL IH PRN (13:17)
[2017-11-04] MEDS ORDERED: ONDANSETRON 4 MG/2 ML VIAL IVP PRN (13:17)
--- NOTE | 2017-11-04 13:17 | POSTANESTH ---
Post Anesthetic Evaluation Cardiovascular Status: Normal, Stable Respiratory Status: Normal, Stable Level of Consciousness/Mental Status: Moderately Sleepy Pain Control: Adequate, Prn Tx Ordered Nausea/Vomiting Control: Adequate, Prn Tx Ordered Complications Possibly Related to Anesthesia: None Noted
--- NOTE | 2017-11-04 13:27 | GCON ---
[f rep st] CONSULTATION INFECTIOUS DISEASE CONSULTATION DATE OF CONSULTATION: 11/04/2017 REFERRING PHYSICIAN: Cesar Allen MD REASON FOR CONSULTATION: Coagulase-negative staphylococcal bacteremia. HISTORY OF PRESENT ILLNESS: The patient is a 67-year-old male with a past medical history of interst itial lung disease and nephrolithiasis, who I am asked to see in consultation for coagulase-negative staphylococcal bacteremia. The patient describes being in his usual state of health until [facility] 1 week ago, at which point in time he noted that his oxygen needs had increased. This was associ ated with fever and chills but no rigors. His temperature peaked in the 101 range. The patient also had developed right flank pain which radiated into his inguinal region. He did not have dysuria or hematuria. Based on those findings, he was seen in the emergency department on 10/30/2017, at which point in time an ultrasound was performed showing mild right-sided hydronephrosis. Hematuria was als o present. It was felt this was most compatible with renal colic and patient was discharged home wit h supportive care and urologic followup. The patient had persistent symptoms and associated nausea w ith vomiting and decreased oral intake, prompting re-evaluation in the emergency department on 2017. At that point in time a CT scan of the abdomen and pelvis was performed, confirming mild to mo derate hydronephrosis with an obstructing 4 mm stone at the ureterovesicular junction. Blood culture s were obtained during his evaluation on 11/02/2017. Yesterday, both sets were growing coagulase-neg ative Staph and the patient was contacted for repeat assessment. As part of his evaluation, he also has undergone chest CT which showed patchy bilateral consolidative changes. The patient had been on prednisone most recently in late August for his interstitial lung disease with plans to start mycop henolate, but this had not been initiated. Repeat CT scan of the abdomen and pelvis was performed ye sterday showing persistent obstructive uropathy. Plans are in place for patient to go to the OR to y for cystoscopy to assess for stone removal. Patient has been started on vancomycin in the interim. Given the above findings, I am now asked to assist in his ongoing management. PAST MEDICAL HISTORY: Interstitial lung disease, which may be of autoimmune etiology, nephrolithiasi s, hypertension, gastroesophageal reflux, diverticulitis. PAST SURGICAL HISTORY: None. CURRENT MEDICATIONS: Vancomycin 1 g IV q.12 hours, Lipitor 20 mg p.o. daily, bisoprolol 2.5 mg p.o. daily, Symbicort inhaler 2 puffs twice daily, Flonase 2 sprays each naris daily, Singulair 10 mg p.o. daily, Flomax 0.4 mg p.o. daily. ALLERGIES: No known drug allergies. SOCIAL HISTORY: Patient quit smoking 20 years ago. No alcohol or drug use. Pet dogs at home. FAMILY HISTORY: Father with myelofibrosis. REVIEW OF SYSTEMS: Outside that noted in the HPI, the remainder of 10 system review is unremarkable except for constipation. PHYSICAL EXAMINATION: VITAL SIGNS: Temperature 36.7, heart rate 108, respiratory rate 18, blood pre ssure 134/79, oxygen saturation 94% on 2 L. GENERAL: Patient is well nourished, well developed, in no acute distress. He appears nontoxic. HEENT: There is no scleral icterus, conjunctival injection , or conjunctival petechiae. The oropharynx clear without lesions. Dentition is in poor repair. Th ere is no nasal discharge. There is no tenderness over the frontal, maxillary or mastoid area. NECK : Supple without palpable lymphadenopathy or thyromegaly. CHEST: Occasional crackles bilaterally. The respiratory effort is normal. CARDIOVASCULAR: Tachycardic without murmurs, gallops, rubs. ABD OMEN: Soft, mildly tender in the right lower quadrant without peritoneal signs. Bowel sounds are pr esent. No palpable organomegaly. BACK: No CVA tenderness bilaterally. MUSCULOSKELETAL: No cyanos is, clubbing, or edema. SKIN: There are some erythematous papular lesions over both upper extremiti es; there are no stigmata of endocarditis. Skin is warm and dry to touch. NEUROLOGIC: Patient is a lert and interacts appropriately with examiner. Cranial nerves 2-12 are grossly intact. Sensation i s grossly intact. Muscle tone and bulk are normal. LYMPHATICS: No cervical, supraclavicular inguin al nodes palpable. LABORATORY DATA: White blood cell count 7.7, hematocrit 35.0, platelets 187, neutrophils 78%. Serum creatinine 1.3 (previously 1.7), AST 15, ALT 27, bilirubin 0.9, alkaline phosphatase 59, albumin 2.7 . Urinalysis shows 1-3 red blood cells and 3-5 white blood cells. Blood cultures x2 sets from 11/02 show coagulase-negative staph in all bottles, respiratory pathogen panel is negative, blood cul tures from 11/03/2017 are pending, urine culture was canceled from 11/02/2017. IMPRESSION: 1. Coagulase-negative staphylococcal bacteremia likely due to obstructive nephrolithiasis: Suspect obstructing stone is the etiology for his staphylococcal bacteremia. Do not think this is likely ass ociated with pneumonia and suspect CT changes are consistent with his known interstitial lung disease . He is scheduled for definitive management of his obstructing stone later today. 2. Renal insufficiency: Improved with hydration and likely has a component related to obstructive n ephrolithiasis. Baseline creatinine typically has been 1.0-1.1. RECOMMENDATIONS: 1. Agree with continued vancomycin with careful monitoring of creatinine and drug levels based on el evated creatinine. 2. Follow up repeat blood cultures to assess for clearing of bacteremia. 3. Agree with further urologic evaluation and treatment of obstructing nephrolithiasis. 4. Anticipate will be 2 weeks of IV antibiotics post removal of stone, provided blood cultures clear . Thank you for this consultation. We will continue to follow the patient with you. /[id number]/MODL
[2017-11-04] MEDS: PANTOPRAZOLE SODIUM 40 MG TAB PO SCH (17:59)
[2017-11-04] MEDS: MONTELUKAST SODIUM 10 MG TAB PO SCH (18:00)
[2017-11-04] MEDS: IPRATROPIUM/ALBUTEROL 3 ML DEYVIAL IH SCH (21:17)
--- NOTE | 2017-11-04 21:55 | GCON ---
[f rep st] CONSULTATION PULMONARY CONSULTATION DATE OF CONSULTATION: 11/04/2017 REASON FOR CONSULTATION: Interstitial lung disease. HISTORY: The patient is a 67-year-old gentleman who has a history of interstitial lung disease. Thi s is associated with a positive ERASMO at 1-320 and a borderline positive SSB with negative SSA and othe r serology. He is followed by Dr. Campos in our office and also followed at [facility], by the [facility] lung disease department, as well as by Rheumatology. He was on variable doses of steroids over several months secondary to increasing pulmonary symptoms a nd interstitial lung disease. He finally was able to wean off the steroids in late August. With h is last course of steroids, he felt that he finally improved, cough resolved, and with activities of daily living he did not have significant shortness of breath nor hypoxemia. He was using oxygen at [facility]. When last seen at [facility], they were contemplating starting him on methylphenolate. He presented to the emergency department on 11/02. November 02. He had 2 issues. He was noted to be hypoxemic by his urologist and had a documented fever. He also had flank pain on the right and had a right ureteral stone. CT scan on admission showed some new focal infiltrates in the posterior segm ent of the right upper lobe and at the left base posteriorly. Previously seen more diffuse interstit ial disease with some nodularity appeared to be better. Admission was recommended, however, he declined. He was placed on Levaquin and he returned home. Marcos johnson, blood cultures drawn in the emergency room on 11/02 came back positive. He was thus called ba tana to the ED yesterday and admitted. Blood cultures in multiple bottles are positive for a coag-nega tive staph. Respiratory panel done from the emergency room on 11/02 was negative. He has no pulmonary symptoms, other than increased hypoxemia. He has noted this over the last severa l weeks and it was acutely worse, associated with his presentations to the ED over the last couple a days. He is not coughing or bringing up any phlegm. He has no chest pain. He has not recently been very active, but probably he has had some increased dyspnea with exertional activities also over the last several weeks. He has been seen by Infectious Disease. He is being treated with vancomycin. It is felt that his ob structing ureteral stone is the etiology for this infection. He was taken for removal of his uretera l stone. This apparently was not possible. A stent was placed. He is recovering from that currentl y. It is unclear what other urologic procedures he may need during this hospitalization. He will ne ed to go on intravenous antibiotics. PAST MEDICAL HISTORY: Remarkable for COPD and emphysema secondary to previous tobacco abuse. He smo ked for about 30 years, but quit smoking approximately 20 years ago. Interstitial lung disease is as noted above, with associated nocturnal hypoxemia, gastroesophageal reflux disease, hypertension, and a history of diverticulitis. PAST SURGICAL HISTORY: He has had no previous surgical procedures. MEDICATIONS: Outpatient on admission included omeprazole, fluticasone nasal spray, nasal saline, Ald actone, Symbicort, montelukast, p.r.n. Combivent, Lipitor, Levaquin, Zebeta, and timolol eye drops. He is currently on all these plus oxycodone for pain, morphine sulfate as needed, vancomycin, and p.r .n. acetaminophen. SOCIAL HISTORY: Patient is . 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 He has been a resident of [place] since the mid 70s. Significant alcoho l is negative. FAMILY HISTORY: Noncontributory. REVIEW OF SYSTEMS: A 10-point review of systems is negative except as mentioned above. There is no history of heart disease. PHYSICAL EXAMINATION: GENERAL: A very pleasant gentleman who remains slightly sleepy postoperativel y. He is in no distress. VITAL SIGNS: Blood pressure is approximately 130/80, heart rate 95 and re gular, respiratory rate is 20. On 6 L of oxygen, saturations are 99%. He is afebrile. HEENT: Unre markable for lymphadenopathy or thyromegaly. There is no jugular venous distention. PULMONARY: The chest reveals fine bibasilar rales posteriorly. There are no rhonchi, no wheezes. Breath sounds ar e somewhat diminished bilaterally with a prolonged expiratory phase. HEART: Regular in rate and rhy thm without significant murmur or gallop. ABDOMEN: Soft. Bowel sounds are diminished. No Mathis ca theter is in place. EXTREMITIES: Unremarkable for edema, cords, or tenderness. NEUROLOGIC: Intact . DATA BASE: CT scan of the chest is as outlined above with areas of new density related to the corporate officer ior segment of the right upper lobe and the medial basilar segment of the left lower lobe. Diffuse i nterstitial disease appears to be better compared to his previous CT scan in June of 2017. LABORATORY DATA: White blood cell count 7600, hematocrit 35, platelets 187. Lactate on admission wa s 1.3. Chemistries are within normal limits. Liver function studies are normal. BUN is 11 with a c reatinine of 1.3. Albumin is 2.7. Urine Legionella and strep pneumonia are both pending. ASSESSMENT: 1. Ureteral stone with associated bacteremia. Growing a coag-negative staph. On vancomycin. Follo wed by Infectious Disease. He is status post stent placement. I am not sure at this point in time i f he is going to need to stay in the hospital for other urologic procedures, we can sort that out maximiliano ashok. 2. Pulmonary infiltrates. He definitely has some new dense pulmonary infiltrates that are focal in the posterior segment of the right upper lobe and the medial basilar segment of the left lower lobe. This does not appear to be similar to his more diffuse interstitial lung disease that he has been tr eated for recently. A focal exacerbation of his interstitial process would be unusual. Radiological ly, the infiltrates are consistent with a possible pneumonia, however, he has had little in the way o f pulmonary infectious symptoms, and is without cough, purulent mucus, etcetera, however, a bacterial pneumonia, community-acquired, cannot be excluded. He was given Levaquin on the , but this has n ot been continued. I do think it would be reasonable to continue the Levaquin and get a relatively s hort term radiologic followup. He has not had a routine 2-view chest x-ray. Infiltrates may be easi ly seen on that. One will be ordered for the morning. 3. History of interstitial lung disease. This is felt to be nonspecific interstitial pneumonia, pos sibly associated with an immunologic etiology. The diffuse interstitial changes that he had on CT sc an in June appear to have resolved, as has his cough. However, the patient does feel that somethi ng has changed over the last several weeks regarding his pulmonary status, and that objectively he lozano s become somewhat more hypoxemic during the day with exertional activities over this time. The incre ased hypoxemia that he has had over the last several days may be secondary to acute pneumonia and/or associated with bacteremia, bedrest, etcetera. Opportunistic infections based on his recent steroid therapy, although he has not had steroids for over a month, cannot be absolutely excluded. If his in filtrates were to progress as opposed to improve on Levaquin, then bronchoscopy could be considered. 4. History of other medical problems as outlined in the History of Present Illness. PLAN/RECOMMENDATIONS: Duonebs will be added to his regimen while here. I would like him to take the se p.r.n. but use them at least 2 times a day prior to Symbicort. Symbicort should be continued, 2 i nhalations twice a day. Oxygen will be continued to keep saturations at rest and with exertional act ivities at 88% or greater. Levaquin will be re-added to his current regimen to cover community-acqui red pneumonia. A PA and lateral chest x-ray will be obtained in the a.m. Further plans and recommendations will be made based on his progress over the next 12-24 hours. /[id number]/MODL
[2017-11-05] MEDS: LR 1,000 ML IV SCH (06:01)
[2017-11-05] MEDS: VANCOMYCIN HCL/NORMAL SALINE 250 ML IV SCH ×2 (06:01→17:55)
--- NOTE | 2017-11-05 06:34 | POSTOPPROG ---
Post Op Note Date of Operation: 11/04/17 Surgeon: Cesar Ardon Chocolate Production Machine Operator: none Anesthesia: GET(General Endotracheal) Pre-op Diagnosis: right obstructing stone Post-op Diagnosis: right obstructing infected stone Indication: as above Procedure: right stent placement Inf/Abcess present in the surg proc area at time of surgery?: Yes Depth: Deep Incisional (Fascial) EBL: Minimal
--- NOTE | 2017-11-05 06:57 | GOP ---
[f rep st] OPERATIVE REPORT DATE OF OPERATION: SURGEON: Cesar Ardon MD PREOPERATIVE DIAGNOSIS: Hematuria, right infected stone, right flank pain and hydronephrosis. POSTOPERATIVE DIAGNOSIS: Significant infection behind stone despite multiple days of antibiotics, co uld not address stone with removal, stent placed only. PROCEDURE PERFORMED: Cystoscopy, right retrograde pyelogram gentle, right stent placement on 018. FINDINGS: DESCRIPTION OF PROCEDURE: Patient was identified by name, medical record number, wrist band, brought to the operating room, was supine on the table, prepped and draped in standard surgical fashion. A 22-Serbian cystoscope was inserted in the bladder. The entire bladder was visualized. Left and right ureteral orifices were noted to be in normal location. 0.038 Glidewire was inserted in the right ur eter. There was a significant amount of pus that came down from the right ureter, therefore displace d the stent in the ureter and a retrograde pyelogram was performed gently to indicate that the course of the ureter and there was some hydronephrosis noted. The stent was passed easily and it curled in the renal pelvis in the bladder. A significant amount of purulence came down through the stent. Th e bladder was emptied. A Mathis catheter was placed. The patient was awakened from anesthesia, broug ht to the recovery room in stable condition. OPERATIVE INDICATIONS: The patient came into the emergency room with an obstructing stone, he also w as growing bacteria in his blood stream and was tachycardic and possibly meeting SIRS criteria upon a rrival to the ER. He was admitted. IV antibiotics were started. Infectious Disease saw him. He wa s made n.p.o. last night. He was brought to the operating room for management of this obstructing st one. The stone was distal near the bladder. He was brought to the operating for management of this. /[id number]/MODL
[2017-11-05] MEDS: BUDESONIDE/FORMOTEROL 160/4.5 60 PUFFS/MDI IH SCH ×2 (08:32→21:43)
[2017-11-05] MEDS: IPRATROPIUM/ALBUTEROL 3 ML DEYVIAL IH SCH ×3 (08:32→21:43)
[2017-11-05] MEDS: ATORVASTATIN CALCIUM 20 MG TAB PO SCH (09:14)
[2017-11-05] MEDS: BISOPROLOL FUMARATE 5 MG TAB PO SCH (09:15)
[2017-11-05] MEDS: TAMSULOSIN HCL 0.4 MG CAP PO SCH (09:18)
[2017-11-05] MEDS: SODIUM CL NASAL 45 ML BTL NS SCH (09:18)
[2017-11-05] MEDS: SENNOSIDES/DOCUSATE SODIUM TAB PO SCH ×2 (09:19→19:53)
[2017-11-05] MEDS: FLUTICASONE NASAL 120 SPRAYS/16 GM MDI EACHNARE SCH (09:21)
[2017-11-05] MEDS: TIMOLOL 0.25% 5 ML OPHT.BTL EACHEYE SCH (09:22)
[2017-11-05] MEDS: oxyCODONE IR 5 MG TAB PO PRN ×2 (09:33→19:52)
[2017-11-05] MEDS ORDERED: ALTEPLASE 2 MG VIAL IVP PRN (10:42)
--- NOTE | 2017-11-05 14:39 | HOSPPROG ---
Hospitalist Progress Note Assessment/Plan: 67-year-old man with a history of interstitial lung disease, hypertension and dyslipidemia is admitted with flank pain and known obstructing kidney stone. He is postop stent placement however the stone is still in the ureter. He is much more comfortable today # 4 mm stone distal right UVJ with hydronephrosis complicated by bacteremia. He is status post stent placement * Will discuss with Urology regarding follow-up needs * Continue treatment for bacteremia per ID * Hopefully he can DC tomorrow if okay with Urology # bacteremia secondary to obstructing stone, * Currently on Vanco possible DC with daptomycin for daily dosing * Length of therapy and follow up per ID, discussed with Dr. Fuller # history of interstitial lung disease on long-term prednisone. Recently weaned off prednisone in August which may have made him more susceptible to infections. He has been followed at [facility] and over the last few weeks his cough has worsened and this admission presenting with acute on chronic respiratory failure * Continue oxygen as needed * Continue nebs and steroid inhaler * Pulmonology treating with Charlene for presumed pneumonia # hypertension, stable # dyslipidemia Subjective: Doing well postop. Has a little bit of discomfort in his lower pelvic area especially with urination otherwise pain much better Objective: Vital Signs Temp Pulse Resp BP Pulse Ox 36.7 C 120 H 20 145/80 H 94 11/05/17 11:25 11/05/17 11:25 11/05/17 11:25 11/05/17 11:25 11/05/17 11:25 Laboratory Results 11/05/17 05:01 11/05/17 05:01 11/04/17 11/05/17 11/06/17 05:59 05:59 05:59 Intake Total 1020 2473 Output Total 200 1130 450 Balance 820 1343 -450 - Physical Exam Constitutional: no apparent distress Eyes: PERRL, EOMI Ears, Nose, Mouth, Throat: moist mucous membranes Cardiovascular: regular rate and rhythym Respiratory: no respiratory distress, reduced air movement, inspiratory crackles , bronchial breath sounds Gastrointestinal: normoactive bowel sounds, tenderness (Mild lower pelvis with no guarding or rebound) Genitourinary: No mcneil in urethra Skin: warm Neurologic: AAOx3 Psychiatric: interacting appropriately, not anxious ICD10 Worksheet Patient Problems: Problems Problem Status Onset Bacteremia Acute Kidney stone on right side Acute Pneumonia Acute Hydronephrosis of right kidney Acute
--- NOTE | 2017-11-05 15:10 | ASMTCMCOM ---
CM Note CM Note Notes: CM spoke w/ Dr. Fuller regarding d/c POC. Pt will require 2 weeks of ivabx (vanco). Pt will have a PICC line placed today. [facility]erral [facility] willing [facility]. Pt will have a $175/a week out of pocket cost. Pt will cover this cost. Pt will requre a HC, RN. Pt is agreeable to referral being made to [facility]. CM sent referral and they are able to accept. CM to follow. Plan: [place] with [facility] Date Signed: 11/05/2017 03:10 PM Electronically Signed By:ADRIANE Oconnor
--- NOTE | 2017-11-05 16:24 | PCMIDPN ---
Assessment/Plan: Assessment: Coagulase-negative Staph bacteremia secondary to obstructing ureter stone on the right side. Status post urologic stenting with free flow of urine now on the right side. Stone is retained at this point. At this point will continue antibiotic therapy with IV vancomycin. Trough levels reasonable at present. Will try to arrange home IV antibiotic. Place PICC line today. Probably prepare for discharge tomorrow morning. Patient will need a 2 week course from blood stream clearance. Plan to continue with oral antibiotic suppression following completion of IV antibiotic if the stone continues to be retained. Plan: 1. Continue IV vancomycin at present dose. 2. Follow laboratory data. 3. Plan 2 weeks of IV vancomycin followed by oral suppression until urologic removal of stone or stone passes normally. 11/05/17 16:22 11/05/17 16:23 Subjective: Patient is resting in his hospital bed. He feels weak. No fevers or chills. Tolerating vancomycin without obvious issue. No rash or itching. Objective: Vancomycin # 2 Vital Signs Temp Pulse Resp BP Pulse Ox 36.7 C 105 H 16 145/80 H 97 11/05/17 11:25 11/05/17 15:55 11/05/17 15:55 11/05/17 11:25 11/05/17 15:55 Laboratory Results 11/05/17 05:01 11/05/17 05:01 11/04/17 11/05/17 11/06/17 05:59 05:59 05:59 Intake Total 1020 2473 Output Total 200 1130 450 Balance 820 1343 -450 - Physical Exam General Appearance: WD/WN, alert, no apparent distress, non-toxic Respiratory: lungs clear, normal breath sounds, No respiratory distress Cardiac/Chest: regular rate, rhythm, No tachycardia Skin: normal color, warm/dry, No rash Neuro/Psych: alert, normal mood/affect, oriented x 3 ICD10 Worksheet Patient Problems: Problems Problem Status Onset Bacteremia Acute Kidney stone on right side Acute Pneumonia Acute Hydronephrosis of right kidney Acute
--- NOTE | 2017-11-05 16:27 | PDIAF ---
- Diagnosis Code Status: Full Code - Medication Management Discharge Medications: Medications to Continue on Transfer Atorvastatin Calcium [Lipitor 20 mg (*)] 20 mg PO DAILY 11/02/17 [Last Taken 07/11] Montelukast Sodium [Singulair 10 mg (*)] 10 mg PO DAILY@1800 11/02/17 [Last Taken 11/03/17] Tamsulosin HCl [Flomax 0.4 MG (*)] 0.4 mg PO DAILY 11/02/17 [Last Taken 11/03/17 ] levOFLOXACIN [levAQUIN (*)] 750 mg PO DAILY #7 tab 11/02/17 [Last Taken 11/02/17 ] Bisoprolol Fumarate [Zebeta (*)] 2.5 mg PO DAILY 11/03/17 [Last Taken 11/03/17] Budesonide/Formoterol 160/4.5 [Symbicort 160-4.5 Mcg Inh (*)] 2 puffs IH BID 07/11 [Last Taken 11/02/17] Fluticasone Nasal [Flonase Nasal [place] (RX)] 2 sprays NASAL DAILY 11/03/17 [ Last Taken 11/03/17] Omeprazole [Prilosec 20 mg] 20 mg PO DAILY@18 11/03/17 [Last Taken 11/02/17] Sodium Cl Nasal [[place] (*)] 1 spray NS DAILY 11/03/17 [Last Taken 11/03/17 ] Spironolactone [Aldactone 25 MG (*)] 25 mg PO DAILY 11/03/17 [Last Taken ] Timolol Maleate 1 drop EACHEYE DAILY 11/03/17 [Last Taken 10/31/17] Intermediate Antibiotics: Vancomycin 1g IV q 12 hours Intermediate Antibiotic Stop Date: 11/17/17 Discharge Medications: Refer to the Discharge Home Medication list for PRN reason. PICC Care - Routine: Yes - Orders Services needed: Registered Nurse Isolation Type: None - Labs/Radiology CBC w/diff Date: 11/08/17 (qMon, Th) CMP Date: 11/08/17 (qMon, Th) Vanco Trough Date and Time: 11/08/17 and qMon and Thurs thereafter. Call or Fax Lab and Imaging Results to: Dr. Yves Fuller - Follow Up Care Current Providers and Referrals: Ramone Campos MD [Primary Care Provider] - As per Instructions
[2017-11-05] MEDS: PANTOPRAZOLE SODIUM 40 MG TAB PO SCH (17:55)
[2017-11-05] MEDS: MONTELUKAST SODIUM 10 MG TAB PO SCH ×2 (17:55→18:02)
[2017-11-05] MEDS ORDERED: LIDOCAINE 1% 300 MG/30 ML SDV ONE (18:56)
--- NOTE | 2017-11-05 19:05 | SOAPPROG ---
SOAP Progress Note Assessment/Plan: Assessment: Focal pulmonary infiltrates right upper lobe and left lower lobe. CT chest consistent with possible pneumonia but little in the way of pulmonary symptoms. However, current renal issues may be over shadowing lung issues. Ureteral stone with infection, bacteremia with coag-negative staph epi. On vancomycin. Id following. To get a PICC line for home antibiotics. Timing of further procedures by Urology is unknown to me. History of interstitial lung disease, possible NSIP. Current focal infiltrates do not suggest NSIP and CT scan appears to be improved regarding his previously seen reticular nodular infiltrates. No indication for steroids at this time, and I feel steroids are best avoided currently in the setting of renal infection and bacteremia. Further evaluation of his interstitial disease will need to be done as an outpatient after renal issues are resolved. History of COPD/emphysema. No evidence of an exacerbation currently. On duo nebs and Symbicort. Oxygenation appears to be improved. Plan: Continue Levaquin for possible pneumonia, duration 7-10 days. Continue oxygen as needed to keep saturations 88% or above. No indication for prednisone or Solu-Medrol at this time. Urologic issues being addressed by others. For outpatient vancomycin. Id following. Discussed with the patient and his . Subjective: Feels about the same regarding his pulmonary status. Oxygenation is fairly good , on room air currently. No significant cough or mucus, no chest pain. Has been largely in bed so cannot comment on dyspnea with exertional activities. Has burning when he urinates and some discomfort over the bladder. Objective: Vital Signs Temp Pulse Resp BP Pulse Ox 36.7 C 109 H 18 107/70 96 11/05/17 16:00 11/05/17 16:00 11/05/17 16:00 11/05/17 16:00 11/05/17 16:00 Laboratory Results 11/05/17 05:01 11/05/17 05:01 11/04/17 11/05/17 11/06/17 05:59 05:59 05:59 Intake Total 1020 2473 Output Total 200 1130 450 Balance 820 1343 -450 CXR: Right upper lobe infiltrate barely seen, vague. Left lower lobe infiltrate seen by a more linear infiltrate/atelectasis in the retrocardiac area parallel to the spine. Interstitial markings mildly prominent Physical Exam - Physical Exam General Appearance: alert, no apparent distress EENT: PERRL/EOMI, other (On room air currently) Neck: normal inspection (No JVD) Respiratory: decreased breath sounds, rales (Few distant rales bilaterally primarily at the bases, lateral lungs), prolonged expiration, No rhonchi, No wheezing Cardiac/Chest: tachycardia (Low 100s, regular. No gallop) Abdomen: soft, No normal bowel sounds (Decreased, present), No non-tender (Mild tenderness lower quadrant) Skin: normal color, warm/dry Extremities: No pedal edema Neuro/Psych: no motor/sensory deficits, No cognition abnormalities ICD10 Worksheet Patient Problems: Problems Problem Status Onset Bacteremia Acute Kidney stone on right side Acute Pneumonia Acute Hydronephrosis of right kidney Acute
--- NOTE | 2017-11-06 03:30 | CPEKG ---
Heart Rate: 139 RR Interval: 432 P-R Interval: 124 QRSD Interval: 74 QT Interval: 304 QTC Interval: 463 P Irving: 68 QRS Irving: 66 T Wave Irving: 17 EKG Severity - OTHERWISE NORMAL ECG - EKG Impression: SINUS TACHYCARDIA Electronically Signed By: Mychal Castro 06-Nov-2017 11:51:33
--- NOTE | 2017-11-06 03:41 | HOSPPROG ---
Hospitalist Progress Note Assessment/Plan: Hospitalist Night Float Note Paged by RN to bedside regarding patient with sudden development of tachycardia to 200s. PAtient woke up and walked to bathroom and back to bed. HR was slightly increased. Patient noticed his HR was elevated and HR jumped to 200s as well as BP elevation. I arrived to bedside. Patient quite anxious and nearly panicked. he was shaking intermittently noting he was scared and didn't understand why HR and BP so high. PICC placed this AM. pt denies any chest pain but noting palpitations which resolved when HR decreased to 130s. EKG obtained. reviewed myself. sinus tachycardia 130s. no acute ST changes. Encouraged deep breathing exercises, patient reassured. monitor at bedside turned off as patient repeatedly turned to check and HR would increase. ativan prn. pain is controlled. on flomax but continues to have some hesitancy and slow urinary flow. Afebrile. Objective: Vital Signs Temp Pulse Resp BP Pulse Ox 36.6 C 105 H 13 137/76 H 92 11/05/17 23:48 11/05/17 23:48 11/05/17 23:48 11/05/17 23:48 11/05/17 23:48 Laboratory Results 11/05/17 05:01 11/05/17 05:01 11/04/17 11/05/17 11/06/17 05:59 05:59 05:59 Intake Total 1020 2473 1200 Output Total 200 1130 575 Balance 820 1343 395 ICD10 Worksheet Patient Problems: Problems Problem Status Onset Bacteremia Acute Kidney stone on right side Acute Pneumonia Acute Hydronephrosis of right kidney Acute
[2017-11-06] MEDS: LORazepam 0.5 MG TAB PO PRN ×3 (04:01→22:02)
[2017-11-06] MEDS: VANCOMYCIN HCL/NORMAL SALINE 250 ML IV SCH ×2 (06:02→16:15)
[2017-11-06] MEDS: TIMOLOL 0.25% 5 ML OPHT.BTL EACHEYE SCH (08:57)
[2017-11-06] MEDS: BISOPROLOL FUMARATE 5 MG TAB PO SCH (08:58)
[2017-11-06] MEDS: ATORVASTATIN CALCIUM 20 MG TAB PO SCH (08:58)
[2017-11-06] MEDS: TAMSULOSIN HCL 0.4 MG CAP PO SCH (08:59)
[2017-11-06] MEDS: SENNOSIDES/DOCUSATE SODIUM TAB PO SCH ×2 (08:59→22:05)
[2017-11-06] MEDS: FLUTICASONE NASAL 120 SPRAYS/16 GM MDI EACHNARE SCH (09:00)
[2017-11-06] MEDS: SODIUM CL NASAL 45 ML BTL NS SCH (09:00)
[2017-11-06] MEDS: IPRATROPIUM/ALBUTEROL 3 ML DEYVIAL IH SCH ×3 (09:54→21:04)
[2017-11-06] MEDS: BUDESONIDE/FORMOTEROL 160/4.5 60 PUFFS/MDI IH SCH ×2 (09:54→21:04)
--- NOTE | 2017-11-06 14:03 | PDIAF ---
- Diagnosis Diagnosis: infected kidney stone Code Status: Full Code - Medication Management Discharge Medications: Medications to Continue on Transfer Atorvastatin Calcium [Lipitor 20 mg (*)] 20 mg PO DAILY 11/02/17 [Last Taken 07/11] Montelukast Sodium [Singulair 10 mg (*)] 10 mg PO DAILY@1800 11/02/17 [Last Taken 11/03/17] Tamsulosin HCl [Flomax 0.4 MG (*)] 0.4 mg PO DAILY 11/02/17 [Last Taken 11/03/17 ] levOFLOXACIN [levAQUIN (*)] 750 mg PO DAILY #7 tab 11/02/17 [Last Taken 11/02/17 ] Bisoprolol Fumarate [Zebeta (*)] 2.5 mg PO DAILY 11/03/17 [Last Taken 11/03/17] Budesonide/Formoterol 160/4.5 [Symbicort 160-4.5 Mcg Inh (*)] 2 puffs IH BID 07/11 [Last Taken 11/02/17] Fluticasone Nasal [Flonase Nasal [place]] 2 sprays NASAL DAILY 11/03/17 [Last Taken 11/03/17] Omeprazole [Prilosec 20 mg] 20 mg PO DAILY@18 11/03/17 [Last Taken 11/02/17] Sodium Cl Nasal [[place] (*)] 1 spray NS DAILY 11/03/17 [Last Taken 11/03/17 ] Spironolactone [Aldactone 25 MG (*)] 25 mg PO DAILY 11/03/17 [Last Taken ] Timolol Maleate 1 drop EACHEYE DAILY 11/03/17 [Last Taken 10/31/17] LORazepam [Ativan (*)] 0.5 mg PO BID PRN #14 tab 11/06/17 [Last Taken Unknown] Sennosides/Docusate Sodium [Senokot-S] 1 - 2 tab PO BID tab 11/06/17 [Last Taken Unknown] Vancomycin HCl/Normal Saline [Vancomycin 1 gm (Premix)] 1 gm IV Q12H bag [Last Taken Unknown] Director Of Therapy Services Antibiotics: Vancomycin 1g IV q 12 hours Director Of Therapy Services Antibiotic Stop Date: 11/17/17 Discharge Medications: Refer to the Discharge Home Medication list for PRN reason. PICC Care - Routine: Yes - Orders Services needed: Home Care, Registered Nurse Home Care Face to Face: I certify that this patient was under my care and that I had the required [id number] encounter meeting the encounter requirements on the discharge day. My findings support the fact that the patient is homebound as defined in Home Care Face to Face Continued: [facility] Chapter 7 Medicare Benefits Manual 30.1.1 , The condition of the patient is such that there exists a normal inability to leave home and consequently, leaving home would require a considerable and taxing effort. Isolation Type: None Diet Recommendation: no restrictions on diet Diet Texture: Regular Texture Diet - Labs/Radiology CBC w/diff Date: 11/08/17 (qMon, ) CMP Date: 11/08/17 (qMon, ) Vanco Trough Date and Time: 11/08/17 and qMon and Thurs thereafter. Call or Fax Lab and Imaging Results to: Dr. Yves Fuller - Follow Up Care Current Providers and Referrals: Ramone Campos MD [Primary Care Provider] - As per Instructions
[2017-11-06] MEDS: oxyCODONE IR 5 MG TAB PO PRN (14:27)
--- NOTE | 2017-11-06 15:18 | GDS ---
[f rep st] DISCHARGE SUMMARY DIAGNOSES: 1. Infected ureteral stone status post stent placement. 2. Significant anxiety disorder. 3. Bacteremia with Staphylococcus epidermidis. 4. Interstitial lung disease with underlying pneumonia this admission. 5. Constipation. CONSULTATIONS: Include: 1. Infectious Disease, Dr. Doni Ruiz and Yves Fuller. 2. Urology, Dr. Ardon. 3. Pulmonology, Dr. Daron Haley. PROCEDURES DONE: 1. Abdominal and pelvic CT scan. Mild to moderate hydroureteronephrosis secondary to 4 mm calculus, nonobstructing left nephrolithiasis, sigmoid diverticulosis without diverticulitis, small right pleu ral effusion and left lower lobe pneumonitis. 2. PICC line insertion. HOSPITAL COURSE: The patient is a 67-year-old followed by Dr. Jermaine Kenney as an outpatient, who has h ad a stone. He was home with pain pills and Flomax. His pain became intolerable, so he came [facility], was found to be bacteremic. The stone was still obstructing, and he was admi tted for further evaluation and management. Blood cultures grew out Staph epi. His blood cultures have since cleared with appropriate antibiotic therapy. He underwent stent placement by Dr. Ardon on 11/05/2017. Since then, his symptoms have improved. Ho wever, he does have a history of interstitial lung disease with abnormal abdominal CT and chest x-ray that was felt possibly secondary to superimposed pneumonia, and he will be treated with 7 days of Le vaquin. On the day of discharge, he is quite constipated and we have been working with bowel protocol. He is having some abdominal pain due to that and will hopefully get a good bowel movement prior to dischar . He did have a panic attack during his hospitalization in the middle of the night, which responded wel l to Ativan. I will give him a small supply of Ativan at discharge. CONDITION ON DISCHARGE: Good. Vital signs are stable. He is afebrile. Heart rate 97, blood pressu re 120/74, respirations 18, he is 94% on room air. DISCHARGE MEDICATIONS: Please see discharge medication form. He will receive 2 weeks of IV antibiot ics. FOLLOWUP: With Dr. Fuller at the [facility]. He will follow up with Dr. Kenney within a week for reevaluation of his stent and stone. [facility] and Dr. Kenney will communicate regarding length of therapy of the antibiotics and stent removal. Total time spent with patient on day of discharge and coordination of care is 40 minutes. /[id number]/MODL
--- NOTE | 2017-11-06 16:52 | HOSPPROG ---
Hospitalist Progress Note Assessment/Plan: 67-year-old man with a history of interstitial lung disease, hypertension and dyslipidemia is admitted with flank pain and known obstructing kidney stone. He is postop stent placement however the stone is still in the ureter. This afternoon prior to discharge he started complaining of increasing left lower quadrant pain and difficult with bowel movements. His pain is so intense he feels like he is unable to go home tonight # abdominal pain, left lower quadrant unclear etiology but I suspect is related to constipation. Patient does have a remote history of diverticulitis which seems less likely with no fever and no white count. * Okay to defer discharge tonight * Will check a flat plate of the abdomen * Follow-up exam in the a.m., continue pain control tonight * If spikes a fever or gets more toxic could consider abdominal CT scan to look for diverticulitis # 4 mm stone distal right UVJ with hydronephrosis complicated by bacteremia. He is status post stent placement * Patient is stable for discharge from a urologic standpoint and will follow up with Dr. Kenney next week # bacteremia secondary to obstructing stone, * Currently on Vanco infectious Disease has filled out the inner agency form for him # history of interstitial lung disease on long-term prednisone. Recently weaned off prednisone in August which may have made him more susceptible to infections. He has been followed at [facility] and over the last few weeks his cough has worsened and this admission presenting with acute on chronic respiratory failure * Continue oxygen as needed * Continue steroid inhaler * Pulmonology treating with Charlene for presumed pneumonia * Can follow up with Dr. Haley or Dr. Campos as an outpatient within 1-2 weeks # hypertension, stable # dyslipidemia Patient set for discharge, inter agency form filled out medication sent to pharmacy however patient then started having increasing lower quadrant pain in his abdomen and felt he was unable to go home at this time. Will cancel discharge for tonight, if his symptoms improve by tomorrow he can be discharged with addendum to discharge summary made. Subjective: Patient complaining of increasing abdominal pain throughout the day. Has had constipation all day with some movement of his bowels but refuses to get out of bed and walk due to his pain. Stent placement was on the right pain is on the left Objective: Vital Signs Temp Pulse Resp BP Pulse Ox 36.8 C 97 18 120/74 94 11/06/17 11:11 11/06/17 11:11 11/06/17 11:11 11/06/17 11:11 11/06/17 11:11 Laboratory Results 11/06/17 05:55 11/06/17 05:55 11/05/17 11/06/17 11/07/17 05:59 05:59 05:59 Intake Total 2473 1200 Output Total 1130 1425 Balance 1343 -225 - Physical Exam Constitutional: uncomfortable Eyes: PERRL, anicteric sclera Ears, Nose, Mouth, Throat: moist mucous membranes, hearing normal Cardiovascular: regular rate and rhythym Respiratory: no respiratory distress, reduced air movement Gastrointestinal: normoactive bowel sounds, tenderness (Left lower quadrant), distension (Mild) Genitourinary: no bladder fullness Skin: warm Musculoskeletal: full muscle strength Neurologic: AAOx3 Psychiatric: interacting appropriately, not anxious ICD10 Worksheet Patient Problems: Problems Problem Status Onset Kidney stone on right side Acute Hydronephrosis of right kidney Acute Pneumonia Acute Bacteremia Acute
--- NOTE | 2017-11-06 16:53 | ASMTCMCOM ---
CM Note CM Note Notes: CM spoke w/ Dr. Ho. Pt is not being discharged today due to medical reasons. CM notified [facility]. CM to follow. Plan: Antonia RN Date Signed: 11/06/2017 04:52 PM Electronically Signed By:ADRIANE Oconnor
[2017-11-06] MEDS ORDERED: POTASSIUM CL 20 MEQ TAB PO ONE (16:55)
[2017-11-06] MEDS ORDERED: traMADol 50 MG TAB PO PRN (17:39)
[2017-11-06] MEDS: MONTELUKAST SODIUM 10 MG TAB PO SCH (17:43)
[2017-11-06] MEDS: PANTOPRAZOLE SODIUM 40 MG TAB PO SCH (18:16)
--- NOTE | 2017-11-06 18:45 | SOAPPROG ---
[facility] Progress Note Assessment/Plan: Assessment: Right distal ureteral stone, s/p right ureteral stent placement for Staph epi bacteremia by Dr. Ardon on Sunday. Pt. improved. Stone management options reviewed today and all questions answered. Nurses presumably straining urine w / no stone retrieved. Plan: Follow-up in my office next week. We will probably proceed with intraoperative ureteroscopy and stone management for sometime the week after that. 11/06/17 18:45 Subjective: Complains of constipation (had his 1st BM in several days earlier today) and left-sided abdominal pain. Also admits to increased urinary frequency, but denies any RUQ/right flank pain. Nurses presumably straining urine w/ no stone retrieved. Objective: Vital Signs Temp Pulse Resp BP Pulse Ox 37.2 C 99 16 111/69 92 11/06/17 16:00 11/06/17 16:00 11/06/17 16:00 11/06/17 16:00 11/06/17 16:00 Laboratory Results 11/06/17 05:55 11/06/17 05:55 11/05/17 11/06/17 11/07/17 05:59 05:59 05:59 Intake Total 2473 1200 400 Output Total 1130 1425 1200 Balance 1343 -225 -800 Physical Exam - Physical Exam General Appearance: WD/WN, alert, no apparent distress Abdomen: distended Skin: normal color, warm/dry Neuro/Psych: alert, normal mood/affect, oriented x 3 ICD10 Worksheet Patient Problems: Problems Problem Status Onset Bacteremia Acute Kidney stone on right side Acute Pneumonia Acute Hydronephrosis of right kidney Acute
[2017-11-07] MEDS: LORazepam 0.5 MG TAB PO PRN (04:35)
[2017-11-07 05:15] VITALS: TEMP 98.2
[2017-11-07 05:27] LABS: PLATELET COUNT 240 10^3/uL (150-400)
[2017-11-07] MEDS: VANCOMYCIN HCL/NORMAL SALINE 250 ML IV SCH (06:22)
[2017-11-07 08:32] VITALS: BP 113/71; PULSE 102; RESP 20; O2SAT 95
[2017-11-07] MEDS: SODIUM CL NASAL 45 ML BTL NS SCH (09:00)
[2017-11-07] MEDS: BISOPROLOL FUMARATE 5 MG TAB PO SCH (09:17)
[2017-11-07] MEDS: TAMSULOSIN HCL 0.4 MG CAP PO SCH (09:18)
[2017-11-07] MEDS: FLUTICASONE NASAL 120 SPRAYS/16 GM MDI EACHNARE SCH (09:19)
[2017-11-07] MEDS: ATORVASTATIN CALCIUM 20 MG TAB PO SCH (09:19)
[2017-11-07] MEDS: SENNOSIDES/DOCUSATE SODIUM TAB PO SCH (09:21)
[2017-11-07] MEDS: TIMOLOL 0.25% 5 ML OPHT.BTL EACHEYE SCH (09:24)
[2017-11-07] MEDS: BUDESONIDE/FORMOTEROL 160/4.5 60 PUFFS/MDI IH SCH (09:37)
[2017-11-07] MEDS: IPRATROPIUM/ALBUTEROL 3 ML DEYVIAL IH SCH (09:47)
--- NOTE | 2017-11-07 11:28 | PDIAF ---
- Diagnosis Diagnosis: infected kidney stone Code Status: Full Code - Medication Management Discharge Medications: Medications to Continue on Transfer Atorvastatin Calcium [Lipitor 20 mg (*)] 20 mg PO DAILY 11/02/17 [Last Taken 07/11] Montelukast Sodium [Singulair 10 mg (*)] 10 mg PO DAILY@1800 11/02/17 [Last Taken 11/03/17] Tamsulosin HCl [Flomax 0.4 MG (*)] 0.4 mg PO DAILY 11/02/17 [Last Taken 11/03/17 ] levOFLOXACIN [levAQUIN (*)] 750 mg PO DAILY #7 tab 11/02/17 [Last Taken 11/02/17 ] Bisoprolol Fumarate [Zebeta (*)] 2.5 mg PO DAILY 11/03/17 [Last Taken 11/03/17] Budesonide/Formoterol 160/4.5 [Symbicort 160-4.5 Mcg Inh (*)] 2 puffs IH BID 07/11 [Last Taken 11/02/17] Fluticasone Nasal [Flonase Nasal [place]] 2 sprays NASAL DAILY 11/03/17 [Last Taken 11/03/17] Omeprazole [Prilosec 20 mg] 20 mg PO DAILY@18 11/03/17 [Last Taken 11/02/17] Sodium Cl Nasal [[place] (*)] 1 spray NS DAILY 11/03/17 [Last Taken 11/03/17 ] Spironolactone [Aldactone 25 MG (*)] 25 mg PO DAILY 11/03/17 [Last Taken ] Timolol Maleate 1 drop EACHEYE DAILY 11/03/17 [Last Taken 10/31/17] Sennosides/Docusate Sodium [Senokot-S] 1 - 2 tab PO BID tab 11/06/17 [Last Taken Unknown] Vancomycin HCl/Normal Saline [Vancomycin 1 gm (Premix)] 1 gm IV Q12H bag [Last Taken Unknown] oxyCODONE IR [Oxycodone Ir (*)] 5 mg PO Q4-6PRN PRN #10 tab 11/07/17 [Last Taken Unknown] traMADol [Ul[place]am 50 mg (*)] 50 mg PO Q6HRS PRN #30 tab 11/07/17 [Last Taken Unknown] Security System Analyst Antibiotics: Vancomycin 1g IV q 12 hours Security System Analyst Antibiotic Stop Date: 11/17/17 Discharge Medications: Refer to the Discharge Home Medication list for PRN reason. PICC Care - Routine: Yes - Orders Services needed: Home Care, Registered Nurse Home Care Face to Face: I certify that this patient was under my care and that I had the required [id number] encounter meeting the encounter requirements on the discharge day. My findings support the fact that the patient is homebound as defined in Home Care Face to Face Continued: CMS Chapter 7 Medicare Benefits Manual 30.1.1 , The condition of the patient is such that there exists a normal inability to leave home and consequently, leaving home would require a considerable and taxing effort. Isolation Type: None Diet Recommendation: no restrictions on diet Diet Texture: Regular Texture Diet - Labs/Radiology CBC w/diff Date: 11/08/17 (qMon, ) CMP Date: 11/08/17 (qMon, ) Vanco Trough Date and Time: 11/08/17 and qMon and Thurs thereafter. Call or Fax Lab and Imaging Results to: Dr. Yves Fuller - Follow Up Care Current Providers and Referrals: Doni Ruiz MD [Medical Doctor] - Franklin Kenney MD [Medical Doctor] - Ramone Campos MD [Primary Care Provider] - As per Instructions Cesar Renae MD [Medical Doctor] -
--- NOTE | 2017-11-07 12:29 | ASMTCMCOM ---
CM Note CM Note Notes: Pt discharging today, Pastora from [facility] here and has spoken with pt, RN from [facility] will see pt cindy. DC Plan: Home w/[facility] Date Signed: 11/07/2017 12:29 PM Electronically Signed By:Miriam Sales RN
--- NOTE | 2017-11-07 17:17 | ASDISCHSUM ---
Discharge Information Plan Status:Home with Home Health Medically Cleared to Leave: Discharge Date:11/07/2017 12:37 PM CM D/C Disposition:Home Health Service ADT D/C Disposition:Home Health Service Projected Discharge Date:11/05/2017 11:00 AM Transportation at D/C:Family Discharge Delay Reason: Follow-Up Date:11/05/2017 11:00 AM Discharge Slot: Final Diagnosis: Placement Information Referral Type:Home Infusion Referral ID:[id number] Provider Name:[facility] (Formerly [facility]) Address 1:[address] Address 2: City:[place] Selection Factors: State:[place] Referral Type:*Home Health Care Services Referral ID:[id number] Provider Name:[facility] (formerly [facility]) Address 1:[address] [address] Address 2: City:[place] Selection Factors: State:[place] Patient Contact Information Contact Name:AJ Relationship: Address:[address] Work Phone: [facility]:[place] Alternate Phone: [facility]/Zip Code:[place] [phone] Email: Financial Information Financial Class:Medicare Advantage Plans Primary Plan Desc:Financuba Primary Plan Number:[id number] Secondary Plan Desc: Secondary Plan Number: Assessment Information [facility] Initial CM Assessment Living Arrangements What is your living Answers: With Spouse arrangement? Who do you live with? Type Of Residence What kind of residence do Answers: House you live in? Discharge Plan Comments Coordination Status Comments Notes: CM spoke w/ LAURA Chamorro regarding d/c POC. Pt is a 67 y/o man admitted for bacteremia and pneumonia. Pt is having surgery today. Pt is tested positive for blood cultures. ID is consulting. Therapies have been ordered. Needs are TBD at this time. CM to follow. Plan: TBD Date Signed: 11/04/2017 11:31 AM Electronically Signed By:ADRIANE Oconnor [facility] Progress Note CM Note CM Note Notes: CM spoke w/ Dr. Fuller regarding d/c POC. Pt will require 2 weeks of ivabx (vanco). Pt will have a PICC line placed today. Referral sent to [facility]. [facility] is willing to accept. Pt will have a $175/a week out of pocket cost. Pt will cover this cost. Pt will requre a HC, RN. Pt is agreeable to referral being made to [facility]. CM sent referral and they are able to accept. CM to follow. Plan: Leandraerita with Family Date Signed: 11/05/2017 03:10 PM Electronically Signed By:ADRIANE Oconnor Case Management Discharge Plan Note Case Management Discharge Discharge Order Complete? Answers: Yes Patient to Obtain Answers: Independently Medications Transportation Arranged Answers: Family/Friends EMTALA Complete Answers: No Case Management Transport Answers: No Form Complete Faxed Final Orders Answers: No Agency/Facility Transfer Answers: No Report Printed & Faxed to Receiving Agency Family Notified Answers: Yes Discharge Comments Notes: Family is unable to accept pt. CM made a new referral to [facility] for [facility]. [facility] accept. Pt is being discharged today. DC orders sent to [facility] and [facility]. A scheduling representative from [facility] came by today and spoke w/ pt and . Pt and on board w/ d/c plans. CM available for changes. Plan: [facility], RN Date Signed: 11/06/2017 01:54 PM Electronically Signed By:ADRIANE Oconnor [facility] CM Progress Note CM Note CM Note Notes: CM spoke w/ Dr. oH. Pt is not being discharged today due to medical reasons. CM notified [facility]. CM to follow. Plan: [facility] RN Date Signed: 11/06/2017 04:52 PM Electronically Signed By:ADRIANE Oconnor [facility] CM Progress Note CM Note CM Note Notes: Pt discharging today, Pastora from [facility] here and has spoken with pt, RN from [facility] will see pt tonight. POLANCO Plan: Home w/[facility] Date Signed: 11/07/2017 12:29 PM Electronically Signed By:Miriam Sales RN Intervention Information Intervention Type:*IM-Signed Date of Service:11/06/2017 01:35 PM Patient Type:Inpatient Staff Member:Lucina Sharpe Hours: Discipline: Severity: Comment:
--- NOTE | 2017-11-08 03:47 | GDS ---
[f rep st] DISCHARGE SUMMARY DISCHARGE DIAGNOSES: 1. Infected ureteral stone status post stent placement. 2. Anxiety. 3. Bacteremia with Staphylococcus epidermidis. 4. Interstitial lung disease. 5. Constipation. HISTORY OF PRESENT ILLNESS: A 67-year-old male followed by Dr. Kenney as an outpatient, who presents with an infected ureteral stone. For details of the patient's initial presentation, please see the history and physical dated 11/03/2017. Consultative services include: 1. Infectious Disease. 2. Urology. 3. Pulmonary Critical Care. HOSPITAL COURSE: By issue: 1. Infected ureteral stone status post stent placement. Patient was treated with IV antibiotics. H e will be discharged with IV antibiotics per PICC line as designated by Infectious Disease. 2. Intermittent tachycardia. Patient appears to have elevated heart rates in the setting of concurr ent anxiety in the evenings in the hospital. The patient responded to Ativan therapy, but became rashaun te somnolent with this treatment. The day of disposition, his heart rates are in the 80s to 90s. We have arranged for the outpatient [facility] team to arrange a Holter monitor to monitor nigh ttime tachycardia. He will follow with Dr. Renae in the outpatient setting. No additional Ativan h as been provided secondary to the severe somnolence patient experienced the morning of disposition. 3. Bacteremia with Staphylococcus epidermidis. The patient is being discharged on IV antibiotics pe r Infectious Disease. He will follow in the outpatient setting with Dr. Ruiz. MEDICATIONS: At the time of disposition, please reference the med rec printed 11/07/2017. FOLLOWUP APPOINTMENTS: Include with Dr. Ruiz, as well as Urology. PENDING STUDIES: At the time of this dictation include blood cultures drawn 11/03/2017, which are pr eliminary no growth to date. I have discussed the case with Infectious Disease. The patient is bein g discharged on IV vancomycin 1 g q.12 hours. Stop date is set at 11/17/2017. TIME SPENT: I spent greater than 30 minutes in the planning and coordination of this discharge. /[id number]/MODL
== END 2017-11-07 12:37 | disposition home health service (06) | DRG 872 ==
LOC: F3E 19:50
PROVIDERS: ADMIT Internal Medicine; ATTEND Internal Medicine
PROC: 0T768DZ Dilation of Right Ureter with Intraluminal Device, Via Natural or Artificial Opening Endoscopic (ICD-10-PCS; principal; 2017-11-05)
PROC: 02HV33Z Insertion of Infusion Device into Superior Vena Cava, Percutaneous Approach (ICD-10-PCS; 2017-11-06)
DX: R78.81 Bacteremia (principal); N13.6 Pyonephrosis; J84.9 Interstitial pulmonary disease, unspecified; F41.9 Anxiety disorder, unspecified; K59.00 Constipation, unspecified; R00.0 Tachycardia, unspecified; B95.7 Other staphylococcus as the cause of diseases classified elsewhere; I10 Essential (primary) hypertension; E78.5 Hyperlipidemia, unspecified; Z87.891 Personal history of nicotine dependence; J43.9 Emphysema, unspecified; H81.09 Meniere's disease, unspecified ear; K21.9 Gastro-esophageal reflux disease without esophagitis
CPT/HCPCS: 87449-90; 97161-GP; 97165-GO; C1751; C1758; C1769; C2625; G8978-GP-CI; G8979-GP-CI; G8980-GP-CI; G8987-GO-CI; G8988-GO-CI; G8989-GO-CI; J1100; J2250; J2270; J2405; J2704; J3010; J3370; Q9967

== ENCOUNTER 2017-11-12 20:26 | Emergency (ER) | payer OTHER ==
[2017-11-12 20:40] VITALS: RESP 18; TEMP 98.1
[2017-11-12] MEDS ORDERED: PHENAZOPYRIDINE HCL 200 MG TAB PO ONE ×2 (20:54→22:23)
[2017-11-12] MEDS ORDERED: NS 1,000 ML IV ONE (20:54)
--- NOTE | 2017-11-12 20:54 | EDPHY ---
H & P Stated Complaint: difficulty urinating, renal stent placed 11/07 for stone Time Seen by Provider: 11/12/17 20:41 HPI/ROS: CHIEF COMPLAINT: Urinary frequency and hesitation HISTORY OF PRESENT ILLNESS: 67-year-old male pain all arrives via ambulance complaining of suprapubic discomfort and urinary frequency, hesitancy for the past 24 hr. He was recently discharged from the hospital for infected ureteral stone post stent placement is currently on 2 weeks of IV vancomycin via PICC line. He has been compliant with this. He denies back or flank pain. Denies testicular or penile pain. Denies back or flank pain. Denies nausea or vomiting. Denies fever chills. Denies passage of stone. REVIEW OF SYSTEMS: A ten point review of systems was performed and is negative with the exception of the items mentioned in the HPI PAST MEDICAL & SURGICAL HISTORY: Infected ureteral stone post stent placement. Anxiety. Interstitial lung disease. SOCIAL HISTORY: No drug use PHYSICAL EXAM (Prior to examination, patient consented to physical exam, hands were washed and my usual and customary physical exam procedures followed) 1) GENERAL: Well-developed, well-nourished, alert and oriented. Appears anxious. 2) HEAD: Normocephalic, atraumatic 3) HEENT: Pupils equal, round, reactive to light bilaterally. Sclera anicteric. Nasopharynx, oropharynx, clear, no lesions. Dry mucous membranes 4) NECK: Full range of motion, no meningeal signs. 5) LUNGS: Clear auscultation bilaterally, no wheezes, no rhonchi, no retractions. 6) HEART: Regular rate and rhythm, no murmur, no heave, no gallop. 7) ABDOMEN: No guarding, no rebound, no focal tenderness, negative McBurney's, negative Bazzi's, negative Rovsing's, negative peritoneal sign, no suprapubic discomfort. I am unable to elicit any abdominal pain on exam. 8) MUSCULOSKELETAL: Moving all extremities, no focal areas of tenderness, no obvious trauma. No peripheral edema or discoloration. 9) BACK: No CVA tenderness, no midline vertebral tenderness, no fluctuance, no step-off, no obvious trauma, no visual or palpable abnormality. 10) SKIN: No rash, no petechiae. 11) : Circumcised normal male external genitalia no urethral discharge. No testicular pain. Bilateral cremasteric reflex present. DIFFERENTIAL DIAGNOSIS: In no particular include but limited to cystitis, volume depletion, pyelonephritis - Personal History Current Tetanus Diphtheria and Acellular Pertussis (TDAP): Yes Tetanus Vaccine Date: 2009 - Medical/Surgical History Hx Asthma: No Hx Chronic Respiratory Disease: Yes Hx Diabetes: No Hx Cardiac Disease: No Hx Renal Disease: No Hx Cirrhosis: No Hx Alcoholism: No Hx HIV/AIDS: No Hx Splenectomy or Spleen Trauma: No Other PMH: HTN, HL, Meniere's Dse, emphysema, glaucoma, diverticulitis, gerd, kidney stones, interstitial lung disease - Social History Smoking Status: Former smoker Constitutional: Initial Vital Signs Temperature (C) 36.7 C 11/12/17 20:36 Heart Rate 97 11/12/17 20:36 Respiratory Rate 18 11/12/17 20:36 Blood Pressure 129/79 H 11/12/17 20:36 O2 Sat (%) 93 11/12/17 20:36 O2 Delivery Mode Room Air Allergies/Adverse Reactions: No Known Allergies Allergy (Verified 11/03/17 17:09) Home Medications: Medication Instructions Recorded Atorvastatin Calcium [Lipitor 20 20 mg PO DAILY 11/02/17 mg (*)] Montelukast Sodium [Singulair 10 10 mg PO DAILY@1800 11/02/17 mg (*)] Tamsulosin HCl [Flomax 0.4 MG (*)] 0.4 mg PO DAILY 11/02/17 levOFLOXACIN [levAQUIN (*)] 750 mg PO DAILY #7 tab 11/02/17 Bisoprolol Fumarate [Zebeta (*)] 2.5 mg PO DAILY 11/03/17 Budesonide/Formoterol 160/4.5 2 puffs IH BID 11/03/17 [Symbicort 160-4.5 Mcg Inh (*)] Fluticasone Nasal [Flonase Nasal 2 sprays NASAL DAILY 11/03/17 [place]] Omeprazole [Prilosec 20 mg] 20 mg PO DAILY@18 11/03/17 Sodium Cl Nasal [[place] (*)] 1 spray NS DAILY 11/03/17 Spironolactone [Aldactone 25 MG 25 mg PO DAILY 11/03/17 (*)] Timolol Maleate 1 drop EACHEYE DAILY 11/03/17 Sennosides/Docusate Sodium 1 - 2 tab PO BID tab 11/06/17 [Senokot-S] Vancomycin HCl/Normal Saline 1 gm IV Q12H bag 11/06/17 [Vancomycin 1 gm (Premix)] oxyCODONE IR [Oxycodone Ir (*)] 5 mg PO Q4-6PRN PRN #10 tab 11/07/17 traMADol [Ultram 50 mg (*)] 50 mg PO Q6HRS PRN #30 tab 11/07/17 Cephalexin [Keflex] 500 mg PO TID 7 Days cap 11/12/17 Phenazopyridine HCl [Pyridium] 200 mg PO PC #10 tab 11/12/17 Medical Decision Making ED Course/Re-evaluation: 8:55 p.m.: Old medical records reviewed. His bladder scan is 0. He is hemodynamically stable. Will administer IV fluids, check basic metabolic panel , administer oral pyridium and re-evaluate 9:58 p.m.: The patient is noted to have pyuria and bacteriuria his urine will be cultured. He is currently on vancomycin monotherapy. Reviewing his old records he was given a 7 day course of Levaquin starting on 11/02/2017 which he completed 3 days ago. At this time he has no gram-negative coverage. Recommend he continue his vancomycin for his Staph epidermidis and will add Keflex to his medication regimen. In addition is noted to be hypokalemic, has been given oral supplementation. I do not think that hospitalization is indicated. Will be discharged with oral Keflex, close follow up with primary care provider in his urologist. Usual customary precautions instructions provided. He feels comfortable being discharged. Patient has an appoint with his urologist Dr. Kenney tomorrow and I recommend he keep this appointment. Discussed the case on numerous instances with secondary supervising physician Dr. Yves Clements in the ER. 10:44 p.m.: Patient is scheduled to be discharged. He was given oral potassium supplementation and oral Keflex. Complaining of esophageal reflux at this time requests medication for his for his discharge. He denies dyspnea, chest pain, back pain. - Data Points Laboratory Results: Laboratory Results 11/12/17 21:10 11/12/17 21:10 11/12/17 11/12/17 11/12/17 21:10 21:10 20:45 WBC 7.85 10^3/uL 10^3/uL (3.80-9.50) RBC 4.39 10^6/uL L 10^6/uL (4.40-6.38) Hgb 11.6 g/dL L g/dL (13.7-17.5) Hct 34.3 % L % (40.0-51.0) MCV 78.1 fL L fL (81.5-99.8) MCH 26.4 pg L pg (27.9-34.1) MCHC 33.8 g/dL g/dL (32.4-36.7) RDW 14.4 % % (11.5-15.2) Plt Count 280 10^3/uL 10^3/uL (150-400) MPV 9.7 fL fL (8.7-11.7) Neut % (Auto) 68.9 % % (39.3-74.2) Lymph % (Auto) 17.1 % % (15.0-45.0) [place] % (Auto) 9.8 % % (4.5-13.0) Eos % (Auto) 2.0 % % (0.6-7.6) Baso % (Auto) 0.4 % % (0.3-1.7) Nucleat RBC Rel Count 0.0 % % (0.0-0.2) Absolute Neuts (auto) 5.41 10^3/uL 10^3/uL (1.70-6.50) Absolute Lymphs (auto) 1.34 10^3/uL 10^3/uL (1.00-3.00) Absolute Monos (auto) 0.77 10^3/uL 10^3/uL (0.30-0.80) Absolute Eos (auto) 0.16 10^3/uL 10^3/uL (0.03-0.40) Absolute Basos (auto) 0.03 10^3/uL 10^3/uL (0.02-0.10) Absolute Nucleated RBC 0.00 10^3/uL 10^3/uL (0-0.01) Immature Gran % 1.8 % H % (0.0-1.1) Immature Gran # 0.14 10^3/uL H 10^3/uL (0.00-0.10) Sodium 139 mEq/L mEq/L (135-145) Potassium 2.9 mEq/L L mEq/L (3.5-5.2) Chloride 106 mEq/L mEq/L (97-110) Carbon Dioxide 24 mEq/l mEq/l (22-31) Anion Gap 9 mEq/L mEq/L (8-16) BUN 9 mg/dL mg/dL (7-23) Creatinine 0.8 mg/dL mg/dL (0.7-1.3) Estimated GFR > 60 Glucose 106 mg/dL H mg/dL (70-100) Calcium 8.4 mg/dL L mg/dL (8.5-10.4) Urine Color Urine Appearance Urine pH Ur Specific [place] Urine Protein Urine Ketones Urine Blood Urine Nitrate Urine Bilirubin Urine Urobilinogen Ur Leukocyte Esterase Urine RBC 50-182 /hpf H /hpf (0-3) Urine WBC 10-15 /hpf H /hpf (0-3) Ur Epithelial Cells NONE SEEN /lpf /lpf (NONE-1+) Ur Renal Epithelial Cell 1+ /hpf H /hpf (NONE SEEN) Urine Bacteria TRACE /hpf H /hpf (NONE SEEN) Urine Mucus 1+ /lpf /lpf (NONE-1+) Urine Glucose 11/12/17 20:45 WBC RBC Hgb Hct MCV MCH MCHC RDW Plt Count MPV Neut % (Auto) Lymph % (Auto) [place] % (Auto) Eos % (Auto) Baso % (Auto) Nucleat RBC Rel Count Absolute Neuts (auto) Absolute Lymphs (auto) Absolute Monos (auto) Absolute Eos (auto) Absolute Basos (auto) Absolute Nucleated RBC Immature Gran % Immature Gran # Sodium Potassium Chloride Carbon Dioxide Anion Gap BUN Creatinine Estimated GFR Glucose Calcium Urine Color YELLOW Urine Appearance MODERATELY TURBID Urine pH 5.0 (5.0-7.5) Ur Specific [place] 1.024 (1.002-1.030) Urine Protein 2+ H (NEGATIVE) Urine Ketones NEGATIVE (NEGATIVE) Urine Blood 3+ H (NEGATIVE) Urine Nitrate NEGATIVE (NEGATIVE) Urine Bilirubin NEGATIVE (NEGATIVE) Urine Urobilinogen NEGATIVE EU EU (0.2-1.0) Ur Leukocyte Esterase 2+ H (NEGATIVE) Urine RBC Urine WBC Ur Epithelial Cells Ur Renal Epithelial Cell Urine Bacteria Urine Mucus Urine Glucose NEGATIVE (NEGATIVE) Medications Given: Discontinued Medications Cephalexin (Keflex 500 Mg Prepack#4) 1 btl TAKEHOME EDNOW ONE PRN Reason: Protocol Stop: 11/12/17 22:00 Last Admin: 11/12/17 22:36 Dose: 1 btl Cephalexin HCl (Keflex) 500 mg PO EDNOW ONE PRN Reason: Protocol Stop: 11/12/17 21:39 Last Admin: 11/12/17 22:11 Dose: 500 mg Sodium Chloride (Ns) 1,000 mls @ 0 mls/hr IV ONCE ONE PRN Reason: Wide Open Stop: 11/12/17 20:55 Last Admin: 11/12/17 21:15 Dose: 1,000 mls Phenazopyridine HCl (Pyridium) 200 mg PO EDNOW ONE Stop: 11/12/17 20:55 Last Admin: 11/12/17 21:18 Dose: 200 mg Phenazopyridine HCl (Pyridium) 200 mg PO EDNOW ONE Stop: 11/12/17 22:24 Last Admin: 11/12/17 22:37 Dose: 200 mg Potassium Chloride (Klor Packets) 20 meq PO EDNOW ONE Stop: 11/12/17 21:35 Last Admin: 11/12/17 22:12 Dose: 20 meq Departure - Departure Disposition: Home, Routine, Self-Care Clinical Impression: Cystitis Condition: Fair Instructions: Cephalexin (By mouth), Phenazopyridine (By mouth), Urinary Tract Infection in Men (ED) Additional Instructions: Return to the emergency department if you develop fevers, chills, flu-like symptoms or any other symptoms that concern you. Referrals: Franklin Kenney MD [Medical Doctor] - 1 day without fail (Keep your appointment with Dr. Kenney tomorrow, this is very important) Prescriptions: Cephalexin [Keflex] 500 mg PO TID 7 Days cap Phenazopyridine HCl [Pyridium] 200 mg PO PC #10 tab
[2017-11-12 21:30] LABS: PLATELET COUNT 280 10^3/uL (150-400)
[2017-11-12] MEDS ORDERED: POTASSIUM CL 20 MEQ PKT PO ONE (21:34)
[2017-11-12] MEDS ORDERED: CEPHALEXIN 500 MG CAP PO ONE (21:38)
[2017-11-12] MEDS ORDERED: CEPHALEXIN 500MG PREPACK#4 BTL TAKEHOME ONE (21:59)
[2017-11-12 22:14] VITALS: BP 137/76; PULSE 79; O2SAT 96
[2017-11-12] MEDS ORDERED: HYOSCYAMINE SULFATE 0.125 MG TAB PO ONE (22:41)
[2017-11-12] MEDS ORDERED: MAG HYDROX/AL HYDROX/SIMETH 30 ML UDCUP PO ONE (22:41)
[2017-11-12] MEDS ORDERED: LIDOCAINE 2% VISCOUS 15 ML UDCUP PO ONE (22:41)
== END 2017-11-12 22:55 | disposition home or self-care (01) ==
LOC: EDUNIT#
DX: N30.90 Cystitis, unspecified without hematuria (principal); B96.89 Other specified bacterial agents as the cause of diseases classified elsewhere; E86.9 Volume depletion, unspecified

== ENCOUNTER → 2017-11-16 | Outpatient (CLI) | payer OTHER | LOC: FIMAGING 13:11 | PROVIDERS: ATTEND Specialist | DX: Z09 Encounter for follow-up examination after completed treatment for conditions other than malignant neoplasm (principal); Z96.0 Presence of urogenital implants; Z87.442 Personal history of urinary calculi ==

== ENCOUNTER 2017-11-29 08:52 | Day surgery (SDC) | payer OTHER ==
[2017-11-29] MEDS ORDERED: levOFLOXACIN 500 MG/DEXTROSE 100 ML IV ONE (08:58)
[2017-11-29] MEDS ORDERED: LIDOCAINE 1% 2 ML INJ ID PRN (09:01)
[2017-11-29] MEDS ORDERED: LR 1,000 ML IV ONE (09:01)
--- NOTE | 2017-11-29 09:44 | PDANEPAE ---
ANE History of Present Illness here for cystoureteroscopy ANE Past Medical History - Cardiovascular History Hx Hypertension: Yes Hx Arrhythmias: Yes Hx Chest Pain: No Hx Coronary Artery / Peripheral Vascular Disease: No Hx CHF / Valvular Disease: No Hx Palpitations: No Cardiovascular History Comment: sinus tach with anxiety - Pulmonary History Hx COPD: Yes Hx Asthma/Reactive Airway Disease: No Hx Recent Upper Respiratory Infection: No Hx Oxygen in Use at Home: Yes Hx Sleep Apnea: No Sleep Apnea Screening Result - Last Documented: Negative Pulmonary History Comment: interstitial lung disease,mild COPD - Neurologic History Hx Cerebrovascular Accident: No Hx Seizures: No Hx Dementia: No - Endocrine History Hx Diabetes: No - Renal History Hx Renal Disorders: Yes Renal History Comment: nephrolithiasis,pylonephritis - Liver History Hx Hepatic Disorders: No - Neurological & Psychiatric Hx Hx Neurological and Psychiatric Disorders: Yes Neurological / Psychiatric History Comment: severe anxiety,untreated - Cancer History Hx Cancer: No - Congenital Disorder History Hx Congenital Disorders: No - GI History Hx Gastrointestinal Disorders: Yes Gastrointestinal History Comment: gerd,diverticulitis - Other Health History Other Health History: Glaucoma,anemia(new) - Chronic Pain History Chronic Pain: No - Surgical History Prior Surgeries: none ANE Review of Systems Review of Systems: - Exercise capacity METS (RN): 4 METS ANE Patient History - Allergies Allergies/Adverse Reactions: No Known Allergies Allergy (Verified 11/20/17 15:09) - Home Medications Home Medications: Atorvastatin Calcium [Lipitor 20 mg (*)] 11/02/17 [Last Taken 1 Day Ago ~] Bisoprolol Fumarate [Zebeta (*)] DAILY AT 6AM 11/03/17 [Last Taken 11/29/17] Budesonide/Formoterol 160/4.5 [Symbicort 160-4.5 Mcg Inh (*)] DAILY 11/03/17 [ Last Taken 1 Day Ago ~11/28/17] Fluticasone Nasal [Flonase Nasal [place]] 11/03/17 [Last Taken 1 Day Ago ~] Omeprazole [Prilosec 20 mg] 11/03/17 [Last Taken 11/29/17] Sodium Cl Nasal [[place] (*)] 11/03/17 [Last Taken 1 Day Ago ~11/28/17] Timolol Maleate 11/03/17 [Last Taken 2 Weeks Ago ~11/15/17] Sennosides/Docusate Sodium [Senokot-S] 11/20/17 [Last Taken 1 Week Ago ~] levOFLOXACIN [levAQUIN (*)] 11/20/17 [Last Taken 1 Day Ago ~11/28/17] oxyCODONE IR [Oxycodone Ir (*)] 11/20/17 [Last Taken 1 Day Ago ~11/28/17] - NPO status NPO Since - Liquids (Date): 11/29/17 NPO Since - Liquids (Time): 07:30 NPO Since - Solids (Date): 11/28/17 NPO Since - Solids (Time): 22:00 - Anes Hx Anes Hx: no prior problems - Smoking Hx Smoking Status: Former smoker - Alcohol Use Alcohol Use: None - Family Anes Hx Family Anes Hx: none Family Hx Anesthesia Complications: none ANE Labs/Vital Signs - Vital Signs Blood Pressure: 140/83 Heart Rate: 97 Respiratory Rate: 18 O2 Sat (%): 96 Height: 175.26 cm Weight: 58.967 kg ANE Physical Exam - Airway Neck exam: FROM Mallampati Score: Class 2 Mouth exam: normal dental/mouth exam Mouth image: 1 - missing - Pulmonary Pulmonary: no respiratory distress, clear to auscultation - Cardiovascular Cardiovascular: regular rate and rhythym, no murmur, rub, or gallop - ASA Status ASA Status: III ANE Anesthesia Plan Anesthesia Plan: general endotracheal anesthesia
[2017-11-29] MEDS ORDERED: MIDAZOLAM 2 MG/2 ML VIAL IVP ONE (09:47)
[2017-11-29] MEDS ORDERED: IOPAMIDOL (ISOVUE-M 300) 15 ML VIAL ONE (09:52)
[2017-11-29] MEDS ORDERED: LIDOCAINE 2% JELLY 20 ML (UROJECT) ONE (09:53)
[2017-11-29] MEDS ORDERED: fentaNYL 100 MCG/2 ML INJ ONE (09:57)
[2017-11-29] MEDS ORDERED: PROPOFOL 200 MG/20 ML VIAL ONE (09:57)
[2017-11-29] MEDS ORDERED: LIDOCAINE 2% 100 MG/5 ML SYR ONE (09:58)
--- NOTE | 2017-11-29 10:22 | PDHPUP ---
History & Physical Update H&P update statement: This history and physical update is based on an assessment of the patient which was completed after admission or registration (within 24 hours), but prior to the surgery/procedure. H&P update: no change in patient's condition since H&P completed
[2017-11-29] MEDS ORDERED: SUGAMMADEX SODIUM 200 MG/2 ML VIAL IVP ONE (11:02)
[2017-11-29] MEDS ORDERED: ACETAMINOPHEN 500 MG TAB PO PRN (11:25)
[2017-11-29] MEDS ORDERED: LR 1,000 ML IV PRN (11:25)
[2017-11-29] MEDS ORDERED: ONDANSETRON 4 MG/2 ML VIAL IVP PRN (11:25)
[2017-11-29] MEDS ORDERED: NALOXONE HCL 0.4 MG/ML INJ IVP PRN (11:25)
--- NOTE | 2017-11-29 11:26 | POSTANESTH ---
Post Anesthetic Evaluation Cardiovascular Status: Normal, Stable, Similar to Pre-Op Cond Respiratory Status: Normal, Stable, Similar to Pre-op Cond. Level of Consciousness/Mental Status: Can Participate in Eval, Alert and Oriented Pain Control: Adequate, Prn Tx Ordered Nausea/Vomiting Control: Adequate, Prn Tx Ordered Complications Possibly Related to Anesthesia: None Noted
--- NOTE | 2017-11-29 11:28 | POSTOPPROG ---
Post Op Note Date of Operation: 11/29/17 Surgeon: Franklin Kenney (# [id number]) Anesthesia: GET(General Endotracheal) Pre-op Diagnosis: Right distal ureteral calculus, s/p stent placement Post-op Diagnosis: Spontaneously-passed right ureteral calculus Procedure: 1. Diagnostic right ureteroscopy 2. Stent removal & replacement Findings: See op note Inf/Abcess present in the surg proc area at time of surgery?: No EBL: Minimal Complications: None Drains: Other (4.7 Fr. x 24 cm right ureteral stent) Specimen(s): None
[2017-11-29] MEDS ORDERED: ACETAMINOPHEN 500 MG TAB ONE (11:50)
--- NOTE | 2017-11-29 11:58 | GOP ---
[f rep st] OPERATIVE REPORT DATE OF OPERATION: 11/29/2017 SURGEON: Franklin Kenney MD ANESTHESIA: General endotracheal. PREOPERATIVE DIAGNOSIS: 1. Right distal ureteral calculus, status post right ureteral stent placement. 2. Recent history of bacteremia. POSTOPERATIVE DIAGNOSIS: Spontaneously-passed distal right ureteral calculus. PROCEDURE PERFORMED: 1. Cystourethroscopy. 2. Right ureteral stent removal and replacement (4.7-Tajik by 24 cm). 3. Diagnostic right ureteroscopy. 4. Right retrograde pyelography. FINDINGS: 1. Spontaneously-passed distal right ureteral calculus. 2. Mild diffuse narrowing of the pendulous urethra. 3. General friability of the urinary tract and mucosa which resulted in more bleeding from the tissu e than typical with simple instrumentation of the lower urinary tract. SPECIMENS: None. ESTIMATED BLOOD LOSS: Minimal. INDICATIONS: This gentleman recently developed bacteremia related to obstruction from a right distal ureteral calculus. Ureteral stent had been previously placed intraoperatively. There was no confir mation as to whether this calculus was still present or not based on lack of known passage of the sto ne through patient straining. Therefore, it was recommended that the patient undergo intraoperative evaluation for assessment of presence of right ureteral calculus and subsequent management. The juanita cations for the procedures as well as potential risks and complications were discussed with the patie nt preoperatively. He appeared to understand, his questions were answered, and he wished to proceed. Written informed surgical consent was thereafter obtained. DESCRIPTION OF PROCEDURE: The patient was brought to the operating room and administered general end otracheal anesthesia. He was carefully placed in the dorsal lithotomy position on the cystoscopic ta ble. The genital area was sterilely prepped with Betadine scrub and paint then draped in the usual s terile fashion. Cystoscopy was performed with 30-degree and 70-degree lenses through a 22-Tajik she ath. Anterior urethra was noted to be diffusely narrowed, particularly the penile pendulous urethra. I was able to advance the cystoscope gently beyond this narrow region and into the posterior urethr a. There was some mild BPH noted. Examination of the bladder revealed a previously-placed right ure teral stent exiting the right ureteral orifice. The remainder of the bladder was completely normal. Flexible grasping forceps were then used to grab the distal tip of the right ureteral stent and bring it out of the urethral meatus. A 0.035- inch hydrophilic angled guidewire was then advanced up the right ureter, through the ureteral stent lumen, until it was positioned within the renal collecting s ystem as seen fluoroscopically. The existing indwelling ureteral stent was then completely removed i ntact. Semi-rigid ureteroscopy was then performed alongside the guidewire. The ureteroscope was car efully advanced all the way to the ureteropelvic junction and no calculi were seen. It should be not ed that the patient did have generally very friable tissue that bled easily with simple noncomplicate d instrumentation with the cystoscope and ureteroscope. Otherwise, no abnormalities of the ureter we re seen. There was some inflammation and edema of the distal ureter where the stone was previously l ocated, but it was clear the stone had spontaneously passed. I injected contrast through the uretero scope in order to opacify the right renal collecting system and proximal ureter. No abnormalities we re seen. Specifically, no filling defects nor hydroureteronephrosis was appreciated. The ureterosco pe was then removed and the cystoscope was back-loaded over the guidewire. A 4.7-Tajik by 24 cm hyd rophilic ureteral stent was advanced over the guidewire until it was properly positioned and seen flu oroscopically in the kidney and cystoscopically in the bladder. The bladder was then drained of all return which was pink tinged. Because of the general friability of this tissue and some slightly-inc reased difficulty in navigating the cystoscope through the pendulous urethra, I decided to place a Fo rafita catheter. A 16-Tajik Mathis was placed without complication in the bladder with return of pink-t inged urine. Before inserting the catheter, 20 cc of 2% lidocaine was injected transurethrally. The patient was then awakened, extubated, transferred to his bed, then taken to recovery room. He surinder ated the procedure well overall. COMPLICATIONS: None. DISPOSITION: He was transferred to the recovery room in stable condition. Instructions will be give n for the patient to remove the Mathis catheter at home in 24 hours. Then return to my office in appr oximately 1 week for ureteral stent removal. /[id number]/MODL
[2017-11-29 12:44] VITALS: TEMP 97.9
[2017-11-29 12:47] VITALS: PULSE 86; O2SAT 97
[2017-11-29] MEDS ORDERED: OPIUM/BELLADONNA ALKALO SUPP PR ONE ×2 (13:15→13:19)
[2017-11-29 14:26] VITALS: BP 102/61; RESP 11
== END 2017-11-29 14:36 | disposition home or self-care (01) ==
LOC: FSGY 08:52
PROVIDERS: ATTEND Specialist
PROC: BT16YZZ Fluoroscopy of Right Ureter using Other Contrast (ICD-10-PCS; 2017-11-29)
PROC: 0TP98DZ Removal of Intraluminal Device from Ureter, Via Natural or Artificial Opening Endoscopic (ICD-10-PCS; principal; 2017-11-29 10:00)
PROC: 0T768DZ Dilation of Right Ureter with Intraluminal Device, Via Natural or Artificial Opening Endoscopic (ICD-10-PCS; principal; 2017-11-29 10:00)
DX: Z46.6 Encounter for fitting and adjustment of urinary device (principal); N20.1 Calculus of ureter; R10.31 Right lower quadrant pain; J44.9 Chronic obstructive pulmonary disease, unspecified; K21.9 Gastro-esophageal reflux disease without esophagitis; E78.5 Hyperlipidemia, unspecified; I10 Essential (primary) hypertension; H40.9 Unspecified glaucoma; F41.9 Anxiety disorder, unspecified; H81.09 Meniere's disease, unspecified ear; Z79.2 Long term (current) use of antibiotics; Z87.891 Personal history of nicotine dependence; Z87.442 Personal history of urinary calculi; Z82.49 Family history of ischemic heart disease and other diseases of the circulatory system; Z96.0 Presence of urogenital implants
CPT/HCPCS: 52332; 76001; C1769; C2625; J1956; J2001; J2250; J2704; J3010; Q9967

== ENCOUNTER → 2018-10-01 | Outpatient (CLI) | payer OTHER | LOC: FIMAGING 15:22 | PROVIDERS: ATTEND Specialist | DX: N20.0 Calculus of kidney (principal) ==